=== PATIENT | male | born 1975 | race Caucasian/White ===

== ENCOUNTER 2022-04-17 13:00 | Inpatient (IN) | payer OTHER, SELFPAY ==
[2022-04-17] VITALS (12 sets, daily range): BP systolic 124–151; BP diastolic 79–93; PULSE 94–111; RESP 12–18; TEMP 36.1–37.1; O2SAT 97–99; BMI 24.5; BMI 24.4
--- NOTE | 2022-04-17 14:36 | ED_ITS ---
HPI - Nausea/Vomiting/Diarrhea General Chief complaint: Nausea/Vomiting Stated complaint: vomiting and hasn't eaten in 3 days Time Seen by Provider: 04/17/22 14:30 History of Present Illness HPI Narrative: This 47-year-old male comes in reporting 3 days of nausea and vomiting. He has not had any diarrhea or dysuria. He does not report any fevers. He states that he has not had much to eat and has been time to take liquids. He does have some occasional abdominal pains accompanying his vomiting. Prior to this he has been in good health. Related Data Home Medications Medication Instructions Recorded Confirmed atorvastatin 40 mg tablet 40 mg PO 04/17/22 04/17/22 lisinopril 20 1 tab PO 04/17/22 04/17/22 mg-hydrochlorothiazide 25 mg tablet Allergies Allergy/AdvReac Type Severity Reaction Status Date / Time No Known Drug Allergies Allergy Verified 04/17/22 16:20 Review of Systems Status of ROS: Reports: 10 or more systems reviewed and unremarkable except as noted in History and below Narrative: Constitutional: No fevers, no weight gain or loss. Eyes: No discharge. No vision changes. HENT: No congestion, no sore throat, no ear pain. Cardiovascular: No chest pain, no palpitations. Respiratory: No shortness of breath, no wheezes, no cough. Gastrointestinal: Nausea with repeated vomiting. No diarrhea. Occasional abdominal pain. Genitourinary: No dysuria, no hematuria. Musculoskeletal: Normal range of motion. Skin: No rashes, no pruritis. Neurological: No dizziness, weakness, sensory change, speech change. Endo/Heme/Allergies: No bruising or bleeding. No polydipsia. Pysch: no suicidality, no anxiety, no insomnia. All other systems reviewed and are negative. Exam Narrative: Exam Narrative: Constitutional: Well-developed, well-nourished, no acute distress. HEENT: Normocephalic, atraumatic. Neck: Normal range of motion. Nontender. Supple. Heart: Regular. No murmurs. Tachycardia, rate 111 beats per minute. Intact d istal pulses. Lungs: Clear to auscultation. No chest discomfort. No wheezes, rhonchi, or rales. Abdomen: Normal bowel sounds. Nontender. No rebound tenderness. Genitalia: Deferred. Back: No midline tenderness. Normal range of motion. Extremities: Normal range of motion. No injury. Skin: Intact. No rash. Warm. No erythema or pallor. Neurologic: No altered sensation. No weakness. Alert and oriented. Psychiatric: No suicidality. No anxiety or depression. No insomnia. Nursing notes and vitals signs are reviewed. Const: Vital Signs, click to edit/add: Vital Signs - 24 hr 04/17/22 13:05 Temperature 96.9 F L Pulse Rate [Pulse Oximeter] 111 H Respiratory Rate 18 Blood Pressure [Ri ght Upper Arm] 137/91 H Pulse Oximetry 97 Oxygen Delivery Me thod Room Air Course Vital Signs Vital signs: Initial Vital Signs Temperature 96.9 F L 04/17/22 13:05 Temperature Source Temporal Artery Scan 04/17/22 13:05 Pulse Rate 111 H 04/17/22 13:05 Pulse Rhythm 04/17/22 13:05 Respiratory Rate 18 04/17/22 13:05 Blood Pressure 137/91 H 04/17/22 13:05 Blood Pressure Mean 106 04/17/22 13:05 Blood Pressure Position Sitting 04/17/22 13:05 Pulse Oximetry 97 04/17/22 13:05 Oxygen Delivery Method 04/17/22 13:05 Vital Signs Temperature 96.9 F L 04/17/22 13:05 Pulse Rate 111 H 04/17/22 13:05 Respiratory Rate 18 04/17/22 13:05 Blood Pressure 137/91 H 04/17/22 13:05 Pulse Oximetry 97 04/17/22 13:05 Oxygen Delivery Method 04/17/22 13:05 Temperature 96.9 F L 04/17/22 13:05 Pulse Rate 111 H 04/17/22 13:05 Respiratory Rate 18 04/17/22 13:05 Blood Pressure 137/91 H 04/17/22 13:05 Pulse Oximetry 97 04/17/22 13:05 Oxygen Delivery Method 04/17/22 13:05 MDM - Nausea/Vomiting/Diarrhea MDM Narrative Medical decision making narrative: This patient comes in with 3 days of nausea and vomiting. He has some intermittent abdominal pain also. An IV was established where he received a L of normal saline and 4 mg of Zofran. This caused his vomiting to stop. His white count returns elevated at around 21,000. It is also significant that is sodium returns at 111. He is functioning rather normally. He has some elevated total bilirubin and slight elevation of liver enzymes. I did do a CT scan of the abdomen and pelvis in this returns without any significant findings except for notable for hepatic steatosis. The patient does state that he takes alcohol regularly but has not been excessive recently. He does admit to taking lots of water especially as he was vomiting more. Patient does not have a fever and there is no certain finding explains his leukocytosis. Initially there were no beds available here or for transfer so I did start replacing his sodium with hypertonic saline at 3% given at 30 mL/hr. As this was beginning it was fortunate that a bed did become available here so Dr. Garcia's and made arrangements for his admission and further evaluation and treatment. Lab Data Labs: Lab Results 04/17/22 04/17/22 04/17/22 Range/Units 15:00 15:00 15:00 WBC 21.80 H (4.50-11.00) K/uL RBC 5.00 (4.30-5.90) m/uL Hgb 15.6 (13.5-17.5) gm/dL Hct 41.3 (37.0-53.0) % MCV 83 (80-100) fL MCH 31 (26-34) pg MCHC 38 H (32-36) gm/dL RDW Coeff of [place] 10.7 L (11.5-15.5) % Plt Count 313 (140-440) K/uL Neut % (Auto) 86.0 H (42.0-72.0) % Lymph % (Auto) 2.1 L (20-44) % [place] % (Auto) 11.1 H (0.0-11.0) % Eos % (Auto) 0.0 (0.0-7.0) % Baso % (Auto) 0.0 (0.0-3.0) % Neut # (Auto) 18.70 H (1.7-7.0) K/uL Lymph # (Auto) 0.50 L (0.90-2.90) K/uL [place] # (Auto) 2.40 H (0.00-0.90) K/UL Eos # (Auto) 0.00 (0.00-0.50) K/uL Baso # (Auto) 0.00 (0.00-0.30) K/uL Abs Immat Gran (auto) 0.17 (0.00-0.30) K/uL Sodium 111 L* (135-149) mmol/L Potassium 3.1 L (3.6-5.1) mmol/L Chloride 61 L (96-114) mmol/L Carbon Dioxide 27 (20-32) mmol/L BUN 19 (5-24) mg/dL Creatinine 0.8 (0.5-1.5) mg/dL Estimated Creat Clear 120.40 Estimated GFR 111 ml/min Glucose 130 H (60-115) mg/dL Calcium 10.5 (8.4-10.6) mg/dL Total Bilirubin 2.4 H (0.1-1.5) mg/dL Direct Bilirubin 0.2 (0.0-0.5) mg/dL AST 105 H (12-35) U/L ALT 68 H (4-50) U/L Alkaline Phosphatase 74 (40-150) U/L Total Protein 9.0 H (6.0-8.3) g/dL Albumin 5.5 H (3.3-5.0) g/dL Lipase 138 (23-300) U/L Imaging Data CT scan - abdomen: Radiologist's impression: Hepatic steatosis. The gallbladder appears normal. No biliary duct dilation. Severely distended bladder without wall thickening. Mild bilateral nonspecific perinephric stranding. No hydronephrosis. Discharge Plan Discharge Clinical Impression: Leukocytosis, Acute hyponatremia Patient Disposition: Admitted As Inpatient Condition: Unchanged Prescriptions: No Action lisinopril-hydrochlorothiazide 20-25 mg tablet 1 tab PO Label Comments: TAKE 1 TABLET BY MOUTH EVERY DAY atorvastatin 40 mg tablet 40 mg PO Follow Up/Referrals: Provider,Not a Local [Primary Care Provider] - Critical Care Time Critical Care Time Critical Care Time: Yes Attestation: The patient required my highest level preparedness to intervene emergently and I personally spent this critical care time directly and personally managing the patient. This critical care time included: Obtaining a history; Examining the patient; Pulse oximetry; Ordering and reviewing of studies; Arranging urgent treatment with development of a management plan; Evaluation of patients response to treatment; Frequent reassessment discussions with other providers. This critical care time was performed to assess and manage the high probability of imminent life-threatening deterioration that could result in multiorgan failure. It was exclusive of separate billable procedures and treating other patients and teaching time. Total Critical Care Time in Minutes: 30
[2022-04-17] MEDS: 0.9 % SODIUM CHLORIDE 1000 ml 1,000 ML IV (15:04)
[2022-04-17] MEDS: ONDANSETRON 2 MG/ML inj 4 MG IVP (15:05)
[2022-04-17 15:26] LABS: Hematocrit 41.3 % (37.0-53.0); Hemoglobin* 15.6 gm/dL (13.5-17.5); Immature Granulocytes Abs Auto 0.17 K/uL (0.00-0.30); Lymphocytes Percent Auto 2.1 % (20-44); Mean Corpuscular HGB Conc 38 gm/dL (32-36); Mean Corpuscular Hemoglobin 31 pg (26-34); Mean Corpuscular Volume 83 fL (80-100); Monocytes Percent Auto 11.1 % (0.0-11.0); Platelet Count* 313 K/uL (140-440); RDW Coefficient of Variation % 10.7 % (11.5-15.5)
[2022-04-17 15:28] LABS: Slide Review Reflex No
[2022-04-17 15:33] LABS: Albumin* 5.5 g/dL (3.3-5.0)
[2022-04-17 15:36] LABS: Alanine Aminotransferase* 68 U/L (4-50); Alkaline Phosphatase* 74 U/L (40-150); Aspartate Amino Transferase* 105 U/L (12-35); Bilirubin Direct* 0.2 mg/dL (0.0-0.5); Bilirubin Total* 2.4 mg/dL (0.1-1.5); Lipase* 138 U/L (23-300)
[2022-04-17 15:37] LABS: Chloride* 61 mmol/L (96-114); Potassium* 3.1 mmol/L (3.6-5.1)
[2022-04-17 15:40] LABS: Blood Urea Nitrogen* 19 mg/dL (5-24); Calcium* 10.5 mg/dL (8.4-10.6); Carbon Dioxide* 27 mmol/L (20-32); Creatinine* 0.8 mg/dL (0.5-1.5); Estimated Glomerular Filt Rate 111 ml/min; Glucose* 130 mg/dL (60-115)
--- NOTE | 2022-04-17 15:45 | CRLHL7_ITS ---
For Patients: As a result of the Century Cures Act, medical imaging exams and procedure reports are released immediately into your electronic medical record. You may view this report before your referring provider. If you have questions, please contact your health care provider. INDICATION: vomiting, increased bilirubin, leukocytosis TECHNIQUE: CT abdomen and pelvis with 84 cc Omnipaque 370 IV contrast. COMPARISON: None. FINDINGS: The liver is normal in size, shape would decrease attenuation. The portal vein is patent. No evidence of periportal edema. Gallbladder and biliary tree are normal. The spleen, adrenal glands and pancreas are within normal limits. Mild bilateral nonspecific perinephric stranding. No hydronephrosis. Severely distended bladder without wall thickening. No evidence of bowel obstruction or inflammation. Unremarkable appearing appendix. No significant free fluid and no free air. Pelvic organs are unremarkable. The lower chest is unremarkable. Mild multilevel degenerative spondylosis without acute fracture or aggressive osseous lesion. IMPRESSION: Hepatic steatosis. The gallbladder appears normal. No biliary duct dilation. Severely distended bladder without wall thickening. Mild bilateral nonspecific perinephric stranding. No hydronephrosis. Please note that all CT scans at this facility use dose modulation, iterative reconstruction, and/or weight-based dosing when appropriate to reduce radiation dose to as low as reasonably achievable. Dictated by Mars Bell MD @ 04/17/2022 4:45:31 PM (Electronically Signed)
[2022-04-17 15:47] LABS: Sodium* 111 mmol/L (135-149)
--- NOTE | 2022-04-17 15:48 | ED.NURSE ---
dr nur informed of critical na of 111. lucrecia espinoza was also informed.
--- NOTE | 2022-04-17 18:46 | PM.IMHP1 ---
Hospitalist- H&P: HPI History of Present Illness Date Seen: 04/17/22 Chief complaint: vomiting and hasn't eaten in 3 days Narrative: Layton Bowers is a 47 year old male who presented to the ED for nausea, vomiting, and abdominal pain. Symptoms began 2 days ago, no inciting incident or food noted. Family members do not have similar symptoms. No hematemesis. No diarrhea. Urine began looking quite concentrated the last 24 hours, so he has been pushing fluids and drinking quite a bit of water. He has continued to take his lisinopril-hydrochlorothiazide and atorvastatin during illness. ER course and findings: - symptoms improved after 1 L of normal saline and administration of Zofran - labs revealed a sodium of 111, potassium 3.1, chloride 61, glucose 130, white count of 21. AST/ALT/bilirubin elevated - CT of abdomen pelvis reveals no infectious process or acute abnormality Patient has a history of daily alcohol use, has been working on cutting down. Last alcohol intake was vodka last night (04/16). Has had symptoms of withdrawal in the past. Also has a history of Essential HTN and hyperlipidemia. Mild GERD, has been using TUMS recently. Lives with Holly (would be medical decision maker if needed) and children in [place]. 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 Nonsmoker. COVID vaccinated. Review of Systems Status of ROS: Reports: 10 or more systems reviewed and unremarkable except as noted in History and below [facility] Medical History (Updated 04/17/22 @ 18:52 by Barbra Farris MD) Essential hypertension Gastroenteritis Hyperlipidemia Surgical History (Updated 04/17/22 @ 19:58 by Barbra Farris MD) History of colonoscopy Social History Smoking Status: Never smoker Non-prescribed substance use: denies use Meds Home Medications and Allergies Home Medications Medication Instructions Recorded Confirmed Type atorvastatin 40 mg tablet 40 mg PO DAILY 04/17/22 04/17/22 History lisinopril 20 1 tab PO DAILY 04/17/22 04/17/22 History mg-hydrochlorothiazide 25 mg tablet Allergies Allergy/AdvReac Type Severity Reaction Status Date / Time No Known Drug Allergies Allergy Verified 04/17/22 16:20 Exam Narrative: Exam Narrative: GEN: Alert and oriented, answering questions appropriately HEENT: Normal external ears, EOMIs bilaterally, no scleral icterus CV: RRR (rate 100s), no concerning murmurs, rubs, or gallops R: LCTA bilaterally without concerning wheezing, rales, or rhonchi Ab: soft, mild discomfort with palpation, no rebound or guarding Ext: wwp, no concerning edema Skin: No concerning skin lesions or rashes on exposed skin Neuro: Nonfocal Psych: Appropriate Const: Vital Signs, click to edit/add: Vital Signs - 24 hr 04/17/22 13:05 Temperature 96.9 F L Pulse Rate [Pulse Oximeter] 111 H Respiratory Rate 18 Blood Pressure [Ri ght Upper Arm] 137/91 H Pulse Oximetry 97 Oxygen Delivery Me thod Room Air Hospitalist - H&P: Result Labs Labs: Short CBC 04/17/22 Range/Units 15:00 WBC 21.80 H (4.50-11.00) K/uL Hgb 15.6 (13.5-17.5) gm/dL Hct 41.3 (37.0-53.0) % Plt Count 313 (140-440) K/uL BMP 04/17/22 15:00 Sodium 111 L* Potassium 3.1 L Chloride 61 L Carbon Dioxide 27 BUN 19 Creatinine 0.8 Glucose 130 H Calcium 10.5 Liver Function 04/17/22 Range/Units 15:00 Total Bilirubin 2.4 H (0.1-1.5) mg/dL Direct Bilirubin 0.2 (0.0-0.5) mg/dL AST 105 H (12-35) U/L ALT 68 H (4-50) U/L Alkaline Phosphatase 74 (40-150) U/L Albumin 5.5 H (3.3-5.0) g/dL Assessment and Plan Assessment and plan (1) Acute hyponatremia: Status: Acute Assessment and Plan: Likely secondary to increased free water intake during acute GI illness, while continuing to take hydrochlorothiazide. ETOH use also possibly contributing. We will treat with hypertonic saline at 30 mL/hour with Q4H BMPs to ensure that we are not correcting sodium too rapidly. Place on CIWA protocol. (2) Gastroenteritis: Status: Acute Assessment and Plan: Improved after Zofran, will also treat with PPI given possible GERD component. (3) Leukocytosis: Status: Acute Assessment and Plan: Source unclear, no signs or symptoms of acute infection, possibly stress demargination from acute illness. Will follow white count and monitor closely for signs or symptoms of illness. (4) Essential hypertension: Status: Acute Assessment and Plan: Hold lisinopril-hydrochlorothiazide overnight, reassess in the morning. (5) Hyperlipidemia: Status: Acute Plan - per above - SCDs per prophylaxis - Requests Full Code status
[2022-04-17 19:43] LABS: Chloride* 67 mmol/L (96-114)
[2022-04-17 19:44] LABS: Potassium* 3.1 mmol/L (3.6-5.1)
[2022-04-17 19:46] LABS: Creatinine* 0.6 mg/dL (0.5-1.5); Est. Creatinine Clearance* 160.53; Estimated Glomerular Filt Rate 121 ml/min
[2022-04-17 19:48] LABS: Blood Urea Nitrogen* 16 mg/dL (5-24); Carbon Dioxide* 29 mmol/L (20-32); Sodium* 109 mmol/L (135-149)
[2022-04-17 19:49] LABS: Calcium* 8.8 mg/dL (8.4-10.6); Glucose* 149 mg/dL (60-115)
--- NOTE | 2022-04-17 20:12 | ED.NURSE ---
No neuro changes/deficits. A + o X4. Pt aware of fluid restriction. LS clear at this time. VSS. Tolerating RA. 500mL of free water given to Pt since arrival. Pt tolerating food that brought. Report given to DMITRIY Partida. Pt will go to [facility] when COVID result is complete.
[2022-04-17 20:29] LABS: SARS PCR* Negative SARS-CoV-2 (Negative)
[2022-04-17] MEDS: LORazepam 2 MG/ML inj IVP (20:58)
[2022-04-17] MEDS: PANTOPRAZOLE SODIUM 40 MG INJ IVP (20:58)
[2022-04-18] VITALS (9 sets, daily range): BP systolic 107–139; BP diastolic 62–97; PULSE 90–103; RESP 16; TEMP 36.6–37.3; O2SAT 97–99
[2022-04-18 00:30] LABS: Chloride* 71 mmol/L (96-114)
[2022-04-18 00:31] LABS: Potassium* 3.4 mmol/L (3.6-5.1)
[2022-04-18 00:33] LABS: Carbon Dioxide* 32 mmol/L (20-32); Creatinine* 0.7 mg/dL (0.5-1.5); Estimated Glomerular Filt Rate 116 ml/min
[2022-04-18 00:34] LABS: Blood Urea Nitrogen* 15 mg/dL (5-24); Calcium* 8.5 mg/dL (8.4-10.6); Glucose* 113 mg/dL (60-115)
[2022-04-18 00:36] LABS: Sodium* 112 mmol/L (135-149)
--- NOTE | 2022-04-18 00:43 | PC.NURSE ---
Critical lab Na 112, taken @ 0037. Dr. Farris notified.
[2022-04-18 03:45] LABS: Chloride* 72 mmol/L (96-114)
[2022-04-18 03:46] LABS: Potassium* 3.2 mmol/L (3.6-5.1)
[2022-04-18 03:48] LABS: Carbon Dioxide* 32 mmol/L (20-32); Creatinine* 0.8 mg/dL (0.5-1.5); Estimated Glomerular Filt Rate 111 ml/min
[2022-04-18 03:49] LABS: Blood Urea Nitrogen* 14 mg/dL (5-24); Calcium* 8.3 mg/dL (8.4-10.6); Glucose* 110 mg/dL (60-115)
[2022-04-18 03:50] LABS: Sodium* 114 mmol/L (135-149)
--- NOTE | 2022-04-18 03:51 | PC.NURSE ---
Critical lab Na 114 @ 0200
--- NOTE | 2022-04-18 05:57 | PC.NURSE ---
Pt came to floor @ 2100 with Na level of 109. Hypertonic NS running at 30/hr. Ativan given At HS. Pt claimed nausea and pain then under control. No emesis. Pt 1200cc FR. Oiented x3. IND on feet. Pt instructed to call RN for assistance with ambulating.
[2022-04-18 07:28] LABS: Basophils Percent Auto 0.1 % (0.0-3.0); Eosinophils Percent Auto 0.3 % (0.0-7.0); Hematocrit 37.3 % (37.0-53.0); Hemoglobin* 13.9 gm/dL (13.5-17.5); Immature Granulocytes Abs Auto 0.03 K/uL (0.00-0.30); Lymphocytes Percent Auto 7.3 % (20-44); Mean Corpuscular HGB Conc 37 gm/dL (32-36); Mean Corpuscular Hemoglobin 32 pg (26-34); Mean Corpuscular Volume 85 fL (80-100); Monocytes Percent Auto 13.1 % (0.0-11.0); Platelet Count* 219 K/uL (140-440); RDW Coefficient of Variation % 10.8 % (11.5-15.5); Red Blood Count 4.41 m/uL (4.30-5.90); White Blood Count* 13.56 K/uL (4.50-11.00)
[2022-04-18 07:30] LABS: Slide Review Reflex No
--- NOTE | 2022-04-18 07:32 | CRLHL7_ITS ---
For Patients: As a result of the Century Cures Act, medical imaging exams and procedure reports are released immediately into your electronic medical record. You may view this report before your referring provider. If you have questions, please contact your health care provider. INDICATION: Leukocytosis. TECHNIQUE: Chest 1 views. COMPARISON: None. FINDINGS: Cardiovasculature and mediastinum: Heart size and vasculature are normal in caliber and appearance. Lungs and pleural spaces: Lungs are clear. No sign of infiltrate or mass. No sign of pleural effusion. No pneumothorax. Bones and soft tissues: No significant findings. IMPRESSION: Negative chest. Dictated by Cassius Awad MD @ 04/18/2022 8:04:16 AM (Electronically Signed)
[2022-04-18 07:38] LABS: Albumin* 4.2 g/dL (3.3-5.0); Chloride* 75 mmol/L (96-114)
[2022-04-18 07:41] LABS: Alanine Aminotransferase* 57 U/L (4-50); Alkaline Phosphatase* 63 U/L (40-150); Aspartate Amino Transferase* 80 U/L (12-35); Bilirubin Total* 1.4 mg/dL (0.1-1.5); Blood Urea Nitrogen* 14 mg/dL (5-24); Carbon Dioxide* 31 mmol/L (20-32); Creatinine* 0.7 mg/dL (0.5-1.5); Estimated Glomerular Filt Rate 116 ml/min; Glucose* 109 mg/dL (60-115); Total Protein* 6.8 g/dL (6.0-8.3)
[2022-04-18 07:42] LABS: Calcium* 8.3 mg/dL (8.4-10.6)
[2022-04-18 07:44] LABS: C Reactive Protein* 4.5 mg/dL (0.5-1.0)
[2022-04-18 07:48] LABS: Gamma Glutamyl Transpeptidase* 68 U/L (8-55)
[2022-04-18 07:52] LABS: C Reactive Protein* 4.6 mg/dL (0.5-1.0)
[2022-04-18 07:59] LABS: Procalcitonin* 0.32 ng/mL (<0.50)
[2022-04-18 08:03] LABS: Sodium* 114 mmol/L (135-149)
[2022-04-18 08:04] LABS: Potassium* 2.5 mmol/L (3.6-5.1)
[2022-04-18] MEDS: POTASSIUM CHLORIDE 10 MEQ/100 ML PIGGYBACK 100 MEQ IVPB ×4 (08:51→14:39)
[2022-04-18] MEDS: LACTATED RINGERS 1000 ML 1,000 ML 200 ML IV ×4 (09:14→23:56)
[2022-04-18] MEDS: PANTOPRAZOLE SODIUM 40 MG INJ IVP (10:04)
[2022-04-18] MEDS: POTASSIUM BICARB 25 MEQ EFFERVESCENT TAB PO ×2 (10:09→18:46)
[2022-04-18] MEDS: MAG HYDROX/ALUMINUM HYD/SIMETH 30 ML ORAL.SUSP 15 ML PO (10:12)
[2022-04-18 13:23] LABS: Chloride* 79 mmol/L (96-114); Potassium* 3.1 mmol/L (3.6-5.1)
[2022-04-18 13:25] LABS: Creatinine* 0.6 mg/dL (0.5-1.5); Est. Creatinine Clearance* 160.53; Estimated Glomerular Filt Rate 121 ml/min
[2022-04-18 13:26] LABS: Blood Urea Nitrogen* 12 mg/dL (5-24); Calcium* 7.9 mg/dL (8.4-10.6); Carbon Dioxide* 33 mmol/L (20-32); Glucose* 122 mg/dL (60-115)
[2022-04-18 13:39] LABS: Sodium* 117 mmol/L (135-149)
[2022-04-18 14:05] LABS: Appearance Urine Clear (Clear); Bilirubin Urine Negative (Negative); Blood Urine Negative (Negative); Color Urine Yellow (Yellow); Glucose Urine Negative (Negative); Ketones Urine 2+ (Negative); Leukocyte Esterase Urine Negative (Negative); Nitrite Urine Negative (Negative); Protein Urine Negative (Negative); Specific Gravity Urine 1.015 (1.000-1.030); Urobilinogen Urine 0.2 (0.2-1.0)
[2022-04-18 14:12] LABS: Amphetamine Screen Urine Negative (Negative); Barbiturate Screen Urine Negative (Negative); Cannabinoid Screen Urine Negative (Negative); Cocaine Screen Urine Negative (Negative); Methadone Screen Urine Negative (Negative); Methamphetamines Screen Urine Negative (Negative); Opiate Screen Urine Negative (Negative); Oxycodone Screen Urine Negative (Negative); Phencyclidine Screen Urine Negative (Negative); Tricyclic Antidepressant Urine Negative (Negative)
[2022-04-18 14:16] LABS: RBC Urine 0-2 (0-2); Squamous Epithelial Cell Urine Few (None-Few); WBC Urine 0-2 (0-5)
[2022-04-18 14:18] LABS: Benzodiazepines Screen Urine POSITIVE (Negative)
--- NOTE | 2022-04-18 14:24 | PM.IMPN1 ---
Progress Note: A&P Assessment and plan (1) Acute hyponatremia: Status: Acute Assessment and Plan: Likely represents a perfect storm of chronic alcohol use, free water intake with gastroenteritis, hydrochlorothiazide therapy. Replaced initially with 3% hypertonic. Now getting LR and still on a fluid restriction. Will check at least 3 times a day and shoot for a increase of 5-6 mEq daily. (2) Acute hypokalemia: Status: Acute Assessment and Plan: IV replacement, 40 mEq (3) Leukocytosis: Status: Acute Assessment and Plan: Probably stress demargination. I am reassured by his CRP and procalcitonin. I am reassured by his chest x-ray. I reviewed his abdomen pelvis CT. (4) Essential hypertension: Status: Acute Assessment and Plan: Certainly will not be getting any hydrochlorothiazide. Will monitor his blood pressures and add back varying regimen of his home meds as needed. (5) Gastroenteritis: Status: Acute Assessment and Plan: Probably viral. Those symptoms seem to have improved greatly. (6) Alcohol dependence, daily use: Status: Acute Assessment and Plan: Mostly daily vodka drinker. Will continue CIWA and close observation as it is really not quite clear when he drink last. Subjective Date Seen: 04/18/22 Interval history: Daily Progress Note - Hospital Medicine Day #: 2 CC: ongoing weakness; nausea/burping/GERD. Severe hyponatremia and hypokalemia. OVERNIGHT UPDATES FROM STAFF & MED, LAB, IMAGING UPDATES He was receiving 3% hypertonic saline overnight given his severe hyponatremia. This is coming up as hoped slowly. From midnight until 1:00 p.m. he came of 5 points. I stopped hypertonic saline mid morning. He is receiving lactated Ringer's. He did receive IV potassium boluses. He was requesting more PPI as he is burping and having significant GERD. His withdrawal has been minimal. Vital signs are all reassuring. On room air with sats 98%. Normal blood pressure, normal pulse. CBC reflects an ongoing leukocytosis but dramatically better 21.8 down to 13.5. Procalcitonin CRP were also checked and trended overnight. These are both either stable or unremarkable. Chest x-ray, portable, this morning Negative chest. Sodium started at 1:11 a.m. dipped to 109 and from midnight last night 112-117 at 1:00 p.m. today. So since midnight there has been a 5 point increase. He did receive 3% normal saline at 30 mL an hour until I arrived this morning. He is now getting LR at 200 mL an hour. His potassium dropped to 2.5 this morning and upon repeat this afternoon was 3.1. Did order 40 mEq IV. UA shows 2+ ketones, otherwise urinary sediment is very reassuring. His tox only shows the benzos we gave him. His CIWA scores have been unremarkable. He has only received Ativan x1 at 9:00 p.m. last night, 2 mg. Review of Systems: Generalized weakness See subjective Cardiac: No new chest pain/pressure/palpitations. Respiratory: no new dyspnea. GI: No abdominal bloating but positive for dyspepsia and heartburn Objective: He looks tired but he is alert, good historian. Vitals: see above Lungs: Clear. Cardiac: S1S2. No swelling Abdomen benign Disposition/Potential discharge - Likely to return to previous living situation. Total time is 35 minutes with greater than 50% spent in counseling and coordination of care. Exam Const: Vital Signs, click to edit/add: Vital Signs - 24 hr 04/17/22 20:46 04/17/22 20:36 04/17/22 17:00 Temperature 98.7 F 96.9 F L Pulse Rate Pulse Rate [Pulse Oximeter] 104 H 108 H Pulse Rate [Right Pulse Oximeter] 94 Respiratory Rate 16 18 12 Blood Pressure [Ri ght Arm] 137/80 Blood Pressure [Ri ght Upper Arm] 151/79 H 151/93 H Pulse Oximetry 99 97 Oxygen Delivery Me thod Room Air 04/17/22 19:37 04/17/22 19:37 04/17/22 20:43 Temperature 98.7 F Pulse Rate Pulse Rate [Pulse Oximeter] Pulse Rate [Right Pulse Oximeter] 94 Respiratory Rate 16 Blood Pressure [Ri ght Arm] 137/80 Blood Pressure [Ri ght Upper Arm] Pulse Oximetry 99 99 99 Oxygen Delivery Me thod Room Air 04/17/22 21:07 04/17/22 21:39 04/17/22 21:46 Temperature 98.7 F Pulse Rate 97 Pulse Rate [Pulse Oximeter] Pulse Rate [Right Pulse Oximeter] 94 Respiratory Rate 16 16 Blood Pressure [Ri ght Arm] 137/80 Blood Pressure [Ri ght Upper Arm] Pulse Oximetry 99 99 Oxygen Delivery Me thod Room Air Room Air 04/17/22 22:16 04/17/22 23:11 04/17/22 23:56 Temperature 98.8 F 98.8 F 98.8 F Pulse Rate Pulse Rate [Pulse Oximeter] Pulse Rate [Right Pulse Oximeter] 100 102 H 97 Respiratory Rate 16 16 16 Blood Pressure [Ri ght Arm] 143/83 H 124/80 124/80 Blood Pressure [Ri ght Upper Arm] Pulse Oximetry 97 97 99 Oxygen Delivery Me thod Room Air Room Air Room Air 04/18/22 02:20 04/18/22 07:00 04/18/22 07:00 Temperature 98.7 F 98 F Pulse Rate Pulse Rate [Pulse Oximeter] Pulse Rate [Right Pulse Oximeter] 100 96 96 Respiratory Rate 16 16 16 Blood Pressure [Ri ght Arm] 107/70 124/68 Blood Pressure [Ri ght Upper Arm] Pulse Oximetry 98 98 Oxygen Delivery Me thod Room Air Room Air Labs Labs: Laboratory Results - last 24 hr 04/17/22 04/17/22 04/17/22 15:00 15:00 15:00 WBC 21.80 H RBC 5.00 Hgb 15.6 Hct 41.3 MCV 83 MCH 31 MCHC 38 H RDW Coeff of Augustus 10.7 L Plt Count 313 Neut % (Auto) 86.0 H Lymph % (Auto) 2.1 L [place] % (Auto) 11.1 H Eos % (Auto) 0.0 Baso % (Auto) 0.0 Neut # (Auto) 18.70 H Lymph # (Auto) 0.50 L [place] # (Auto) 2.40 H Eos # (Auto) 0.00 Baso # (Auto) 0.00 Abs Immat Gran (auto) 0.17 Sodium 111 L* Potassium 3.1 L Chloride 61 L Carbon Dioxide 27 BUN 19 Creatinine 0.8 Estimated Creat Clear 120.40 Estimated GFR 111 Glucose 130 H Calcium 10.5 Total Bilirubin 2.4 H Direct Bilirubin 0.2 GGT AST 105 H ALT 68 H Alkaline Phosphatase 74 C-Reactive Protein Total Protein 9.0 H Albumin 5.5 H Lipase 138 Procalcitonin Urine Color Urine Appearance Urine pH Ur Specific [place] Urine Protein Urine Glucose (UA) Urine Ketones Urine Blood Urine Nitrite Urine Bilirubin Urine Urobilinogen Ur Leukocyte Esterase Urine RBC Urine WBC Ur Squamous Epith Cells Urine Bacteria Urine Opiates Screen Ur Oxycodone Screen Urine Methadone Screen Ur Propoxyphene Screen Ur Barbiturates Screen U Tricyclic Antidepress Ur Phencyclidine Scrn Ur Amphetamines Screen U Methamphetamines Scrn U Benzodiazepines Scrn Urine Cocaine Screen U Marijuana (THC) Screen Ur Drug Screen Comment SARS-CoV-2 (PCR) 04/17/22 04/17/22 04/17/22 18:45 19:20 23:55 WBC RBC Hgb Hct MCV MCH MCHC RDW Coeff of [place] Plt Count Neut % (Auto) Lymph % (Auto) [place] % (Auto) Eos % (Auto) Baso % (Auto) Neut # (Auto) Lymph # (Auto) [place] # (Auto) Eos # (Auto) Baso # (Auto) Abs Immat Gran (auto) Sodium 109 L* 112 L* Potassium 3.1 L 3.4 L Chloride 67 L 71 L Carbon Dioxide 29 32 BUN 16 15 Creatinine 0.6 0.7 Estimated Creat Clear 160.53 137.60 Estimated GFR 121 116 Glucose 149 H 113 Calcium 8.8 8.5 Total Bilirubin Direct Bilirubin GGT 68 H AST ALT Alkaline Phosphatase C-Reactive Protein 4.6 H Total Protein Albumin Lipase Procalcitonin 0.32 Urine Color Urine Appearance Urine pH Ur Specific [place] Urine Protein Urine Glucose (UA) Urine Ketones Urine Blood Urine Nitrite Urine Bilirubin Urine Urobilinogen Ur Leukocyte Esterase Urine RBC Urine WBC Ur Squamous Epith Cells Urine Bacteria Urine Opiates Screen Ur Oxycodone Screen Urine Methadone Screen Ur Propoxyphene Screen Ur Barbiturates Screen U Tricyclic Antidepress Ur Phencyclidine Scrn Ur Amphetamines Screen U Methamphetamines Scrn U Benzodiazepines Scrn Urine Cocaine Screen U Marijuana (THC) Screen Ur Drug Screen Comment SARS-CoV-2 (PCR) Negative SARS-CoV-2 04/18/22 04/18/22 04/18/22 03:28 06:39 06:39 WBC 13.56 H RBC 4.41 Hgb 13.9 Hct 37.3 MCV 85 MCH 32 MCHC 37 H RDW Coeff of [place] 10.8 L Plt Count 219 Neut % (Auto) 79.0 H Lymph % (Auto) 7.3 L [place] % (Auto) 13.1 H Eos % (Auto) 0.3 Baso % (Auto) 0.1 Neut # (Auto) 10.70 H Lymph # (Auto) 1.00 [place] # (Auto) 1.80 H Eos # (Auto) 0.00 Baso # (Auto) 0.00 Abs Immat Gran (auto) 0.03 Sodium 114 L* 114 L* Potassium 3.2 L 2.5 L* Chloride 72 L 75 L Carbon Dioxide 32 31 BUN 14 14 Creatinine 0.8 0.7 Estimated Creat Clear 120.40 137.60 Estimated GFR 111 116 Glucose 110 109 Calcium 8.3 L 8.3 L Total Bilirubin 1.4 Direct Bilirubin GGT AST 80 H ALT 57 H Alkaline Phosphatase 63 C-Reactive Protein 4.5 H Total Protein 6.8 Albumin 4.2 Lipase Procalcitonin 0.30 Urine Color Urine Appearance Urine pH Ur Specific [place] Urine Protein Urine Glucose (UA) Urine Ketones Urine Blood Urine Nitrite Urine Bilirubin Urine Urobilinogen Ur Leukocyte Esterase Urine RBC Urine WBC Ur Squamous Epith Cells Urine Bacteria Urine Opiates Screen Ur Oxycodone Screen Urine Methadone Screen Ur Propoxyphene Screen Ur Barbiturates Screen U Tricyclic Antidepress Ur Phencyclidine Scrn Ur Amphetamines Screen U Methamphetamines Scrn U Benzodiazepines Scrn Urine Cocaine Screen U Marijuana (THC) Screen Ur Drug Screen Comment SARS-CoV-2 (PCR) 04/18/22 04/18/22 04/18/22 13:04 13:55 13:55 WBC RBC Hgb Hct MCV MCH MCHC RDW Coeff of [place] Plt Count Neut % (Auto) Lymph % (Auto) [place] % (Auto) Eos % (Auto) Baso % (Auto) Neut # (Auto) Lymph # (Auto) [place] # (Auto) Eos # (Auto) Baso # (Auto) Abs Immat Gran (auto) Sodium 117 L* Potassium 3.1 L Chloride 79 L Carbon Dioxide 33 H BUN 12 Creatinine 0.6 Estimated Creat Clear 160.53 Estimated GFR 121 Glucose 122 H Calcium 7.9 L Total Bilirubin Direct Bilirubin GGT AST ALT Alkaline Phosphatase C-Reactive Protein Total Protein Albumin Lipase Procalcitonin Urine Color Yellow Urine Appearance Clear Urine pH 7.0 Ur Specific [place] 1.015 Urine Protein Negative Urine Glucose (UA) Negative Urine Ketones 2+ A Urine Blood Negative Urine Nitrite Negative Urine Bilirubin Negative Urine Urobilinogen 0.2 Ur Leukocyte Esterase Negative Urine RBC 0-2 Urine WBC 0-2 Ur Squamous Epith Cells Few Urine Bacteria None Urine Opiates Screen Negative Ur Oxycodone Screen Negative Urine Methadone Screen Negative Ur Propoxyphene Screen Negative Ur Barbiturates Screen Negative U Tricyclic Antidepress Negative Ur Phencyclidine Scrn Negative Ur Amphetamines Screen Negative U Methamphetamines Scrn Negative U Benzodiazepines Scrn POSITIVE A* Urine Cocaine Screen Negative U Marijuana (THC) Screen Negative Ur Drug Screen Comment See Note SARS-CoV-2 (PCR)
--- NOTE | 2022-04-18 19:45 | PC.NURSE ---
Patient is up independently this shift. Voiding dark arben urine. Patient received IV potassium replacement without complication. Pt complained of indigestion/throat irritation - Maalox given and protonix ordered per Dr. Pathak. Pt was able to eat a regular diet for dinner without nausea.
[2022-04-18 20:13] LABS: HCO3 VBG 33 mmol/L (21-28); PCO2 VBG 45 mmHG (40-50); PO2 VBG 29.2 mmHG (25-47); pH VBG 7.479 (7.32-7.43)
[2022-04-18 20:32] LABS: Chloride* 83 mmol/L (96-114); Potassium* 3.5 mmol/L (3.6-5.1)
[2022-04-18 20:34] LABS: Creatinine* 0.7 mg/dL (0.5-1.5); Estimated Glomerular Filt Rate 116 ml/min
[2022-04-18 20:35] LABS: Blood Urea Nitrogen* 9 mg/dL (5-24); Calcium* 7.9 mg/dL (8.4-10.6); Carbon Dioxide* 30 mmol/L (20-32); Glucose* 126 mg/dL (60-115)
[2022-04-18 20:37] LABS: Sodium* 120 mmol/L (135-149)
--- NOTE | 2022-04-18 20:40 | PC.NURSE ---
Critical Lab, sodium 120, charge nurse and MD updated
[2022-04-19 03:00] VITALS: BP 139/97; PULSE 91; RESP 16; TEMP 37.2; O2SAT 98
[2022-04-19] MEDS: LACTATED RINGERS 1000 ML 1,000 ML 200 ML IV (04:51)
--- NOTE | 2022-04-19 05:25 | PC.NURSE ---
[id number] PT resting well during shift, up independently to BR, tolerating well. denies N/V, headache and chest pain.
[2022-04-19 07:09] LABS: Ionized Calcium* 1.07 mmol/L (1.11-1.30)
[2022-04-19 07:31] LABS: Basophils Absolute Auto 0.03 K/uL (0.00-0.30); Basophils Percent Auto 0.3 % (0.0-3.0); Eosinophils Absolute Auto 0.06 K/uL (0.00-0.50); Eosinophils Percent Auto 0.6 % (0.0-7.0); Hematocrit 35.9 % (37.0-53.0); Hemoglobin* 12.7 gm/dL (13.5-17.5); Immature Granulocytes Abs Auto 0.03 K/uL (0.00-0.30); Lymphocytes Percent Auto 12.5 % (20-44); Mean Corpuscular HGB Conc 35 gm/dL (32-36); Mean Corpuscular Hemoglobin 31 pg (26-34); Mean Corpuscular Volume 88 fL (80-100); Monocytes Percent Auto 13.8 % (0.0-11.0); Neutrophils Percent Auto 72.5 % (42.0-72.0); Platelet Count* 205 K/uL (140-440); RDW Coefficient of Variation % 11.2 % (11.5-15.5); Red Blood Count 4.07 m/uL (4.30-5.90); White Blood Count* 9.33 K/uL (4.50-11.00)
[2022-04-19 07:44] LABS: Slide Review Reflex No
[2022-04-19 07:50] LABS: Albumin* 3.5 g/dL (3.3-5.0); Chloride* 91 mmol/L (96-114)
[2022-04-19 07:51] LABS: Potassium* 3.1 mmol/L (3.6-5.1); Sodium* 126 mmol/L (135-149)
[2022-04-19 07:53] LABS: Alkaline Phosphatase* 48 U/L (40-150); Aspartate Amino Transferase* 64 U/L (12-35); Bilirubin Total* 0.7 mg/dL (0.1-1.5); Blood Urea Nitrogen* 6 mg/dL (5-24); Carbon Dioxide* 28 mmol/L (20-32); Creatinine* 0.6 mg/dL (0.5-1.5); Est. Creatinine Clearance* 160.53; Estimated Glomerular Filt Rate 121 ml/min; Lipase* 128 U/L (23-300)
[2022-04-19 07:54] LABS: Alanine Aminotransferase* 55 U/L (4-50); Calcium* 8.1 mg/dL (8.4-10.6); Gamma Glutamyl Transpeptidase* 59 U/L (8-55); Glucose* 101 mg/dL (60-115); Magnesium* 1.7 mg/dL (1.5-2.6)
[2022-04-19 07:56] LABS: C Reactive Protein* 3.9 mg/dL (0.5-1.0)
[2022-04-19 08:00] VITALS: BP 144/101; PULSE 98; RESP 14; TEMP 36.9; O2SAT 98
[2022-04-19] MEDS: POTASSIUM BICARB 25 MEQ EFFERVESCENT TAB PO ×3 (08:11→15:18)
[2022-04-19] MEDS: POTASSIUM CHLORIDE 10 MEQ/100 ML PIGGYBACK 100 MEQ IVPB ×3 (08:34→11:05)
[2022-04-19] MEDS: PANTOPRAZOLE SODIUM 40 MG INJ IVP (10:04)
[2022-04-19] MEDS: MAGNESIUM OXIDE 400 MG TABLET PO (11:02)
[2022-04-19 12:00] VITALS: BP 135/92; PULSE 100; RESP 16; TEMP 36.8; O2SAT 99
[2022-04-19 15:00] VITALS: PULSE 107; RESP 16
[2022-04-19 15:56] VITALS: BP 152/90; PULSE 107; RESP 16; TEMP 37.1; O2SAT 99
[2022-04-19 16:01] LABS: Chloride* 92 mmol/L (96-114); Potassium* 3.5 mmol/L (3.6-5.1); Sodium* 128 mmol/L (135-149)
[2022-04-19 16:04] LABS: Blood Urea Nitrogen* 12 mg/dL (5-24); Carbon Dioxide* 28 mmol/L (20-32); Creatinine* 0.7 mg/dL (0.5-1.5); Estimated Glomerular Filt Rate 116 ml/min; Glucose* 140 mg/dL (60-115)
[2022-04-19 16:05] LABS: Calcium* 8.4 mg/dL (8.4-10.6); Magnesium* 1.6 mg/dL (1.5-2.6)
[2022-04-19 16:44] VITALS: BP 152/90; PULSE 90; RESP 16; TEMP 37.1
--- NOTE | 2022-04-19 16:54 | P.DS_ITS ---
DS: Providers Provider Date Seen: 04/19/22 Date of admission: 04/17/22 20:15 Primary care physician: Not a Local Provider Admitting Clinician: Barbra Farris MD Attending Physician on discharge: Vero Pathak MD [place] [facility] Date of Discharge: 04/19/22 DS: Diagnosis Discharge Diagnosis (1) Acute hyponatremia: Status: Acute (2) Gastroenteritis: Status: Acute (3) Acute hypokalemia: Status: Acute (4) Alcohol dependence, daily use: Status: Acute (5) Essential hypertension: Status: Acute DS: Summary Hospital Course Hospital Course: HOSPITALIST DISCHARGE SUMMARY ATTENDING PHYSICIAN: Vero Pathak MD FINAL DIAGNOSIS: Severe hyponatremia Hypokalemia Hypomagnesemia Hypertension Daily alcohol use Resolved/recent gastroenteritis HOSPITAL FOLLOWUP ISSUES: Lab - BMP and magnesium should be checked this week PCP establishment - this week for ongoing abstinence from alcohol plan, blood pressure management and lab interpretation. REFERRALS WHILE ADMITTED: None REFERRALS AFTER DISCHARGE: Alcoholics anonymous BRIEF HOSPITAL COURSE: This is a 47-year-old who presented with severe hyponatremia. Manisha of his sodium was 109. He was treated in our ICU with hypertonic saline. His hyponatremia was felt to be multifactorial. He had recently had a gastroenteritis and continue to take his thiazide diuretic for hypertension, really pushed free water when he stopped vomiting and as a baseline is a near daily vodka drinker. We obviously held his thiazide, he did not have significant withdrawals, we have managed his blood pressure, improved his sodium to a discharge level of 128. This was done through fluid restriction, hypertonic saline, lactated Ringer's, salt tabs. Patient is discharging on the evening of 04/19. He is no longer on fluids. He has abided by his fluid restriction. He is anxious to return home. VITAL SIGN, MEDICATION, LAB/MICRO, IMAGING ALL REVIEWED (full details available in account tabs or by records request) NOTABLE FOR: Sodium that had a manisha of 109 and increased to 128 Potassium that had a manisha of 2.5 and discharge was 3.5 Calcium that was 1.07 and increased to 1.1 Magnesium that was low normal Mildly elevated LFTs with out obstruction. DISCHARGE MEDICATIONS: See Reconciled list Notable for: Stopping hydrochlorothiazide, restarting lisinopril only at 20 mg. Adding salt tabs, ppi, Zofran as needed REVIEW OF SYSTEMS No new chest pain or dyspnea Pain controlled No voiding difficulties Tolerating diet challenge PHYSICAL EXAM: CONSTITUTIONAL: VITAL SIGNS: see record. HEENT: Normocephalic, atraumatic. PERRL, EOMI, conjunctivae pink, no scleral icterus. Ears and nose externally normal. Pharynx normal. NECK: No JVD. No carotid bruit, no thyromegaly, no adenopathy. CHEST: Clear to auscultation bilaterally. HEART: S1 and S2 normal. Edema ABDOMEN: Soft, nontender. Normal bowel sounds. MUSCULOSKELETAL: No gross joint deformity or swelling. NEURO: Cranial nerves intact. Grossly intact. No asymmetric findings. SKIN: No rashes, petechiae, concerning changes PSYCHIATRIC: Mood euthymic. DISPOSITION: Home with family Time spent on discharge 37 minutes. Status at Discharge Functional status at discharge: independent ambulation Overall status at discharge: patient is progressing back to baseline Time Spent with Patient Time attestation: Total time spent providing and/or coordinating discharge services: Time spent: Greater than 30 minutes Exam Const: Vital Signs, click to edit/add: Vital Signs - 24 hr 04/18/22 19:14 04/18/22 19:17 04/18/22 19:37 Temperature 99.2 F 99.2 F Pulse Rate Pulse Rate [Right Pulse Oximeter] 103 H 103 H Respiratory Rate 16 16 Blood Pressure Blood Pressure [Ri ght Arm] 135/94 H 135/94 H Pulse Oximetry 97 98 99 Oxygen Delivery Me thod Room Air Room Air 04/18/22 23:00 04/18/22 23:00 04/18/22 23:00 Temperature 99.0 F Pulse Rate 90 Pulse Rate [Right Pulse Oximeter] 91 91 Respiratory Rate 16 16 Blood Pressure Blood Pressure [Ri ght Arm] 139/97 H Pulse Oximetry 98 Oxygen Delivery Me thod Room Air 04/19/22 03:00 04/19/22 08:00 04/19/22 08:00 Temperature 99.0 F 98.5 F Pulse Rate Pulse Rate [Right Pulse Oximeter] 91 98 98 Respiratory Rate 16 14 14 Blood Pressure Blood Pressure [Ri ght Arm] 139/97 H 144/101 H Pulse Oximetry 98 98 Oxygen Delivery Me thod Room Air Room Air 04/19/22 12:00 04/19/22 15:00 04/19/22 15:56 Temperature 98.3 F 98.8 F Pulse Rate Pulse Rate [Right Pulse Oximeter] 100 107 H 107 H Respiratory Rate 16 16 16 Blood Pressure Blood Pressure [Ri ght Arm] 135/92 H 152/90 H Pulse Oximetry 99 99 Oxygen Delivery Me thod Room Air Room Air 04/19/22 16:44 Temperature 98.8 F Pulse Rate 90 Pulse Rate [Right Pulse Oximeter] Respiratory Rate 16 Blood Pressure 152/90 H Blood Pressure [Ri ght Arm] Pulse Oximetry Oxygen Delivery Me thod DS: Data Data Completed and Pending Labs on day of discharge: Labs from last 24 hours 04/19/22 04/19/22 04/19/22 15:38 15:38 06:32 WBC RBC Hgb Hct MCV MCH MCHC RDW Coeff of [place] Plt Count Neut % (Auto) Lymph % (Auto) [place] % (Auto) Eos % (Auto) Baso % (Auto) Neut # (Auto) Lymph # (Auto) [place] # (Auto) Eos # (Auto) Baso # (Auto) Abs Immat Gran (auto) VBG pH VBG pCO2 VBG pO2 VBG HCO3 Sodium 128 L Potassium 3.5 L Chloride 92 L Carbon Dioxide 28 BUN 12 Creatinine 0.7 Estimated Creat Clear 137.60 Estimated GFR 116 Glucose 140 H Calcium 8.4 Ionized Calcium [place] 1.10 L Magnesium 1.6 Total Bilirubin GGT AST ALT Alkaline Phosphatase C-Reactive Protein Total Protein Albumin Lipase TSH 1.460 04/19/22 04/19/22 04/19/22 06:32 06:32 06:32 WBC 9.33 RBC 4.07 L Hgb 12.7 L Hct 35.9 L MCV 88 MCH 31 MCHC 35 RDW Coeff of [place] 11.2 L Plt Count 205 Neut % (Auto) 72.5 H Lymph % (Auto) 12.5 L [place] % (Auto) 13.8 H Eos % (Auto) 0.6 Baso % (Auto) 0.3 Neut # (Auto) 6.80 Lymph # (Auto) 1.20 [place] # (Auto) 1.30 H Eos # (Auto) 0.06 Baso # (Auto) 0.03 Abs Immat Gran (auto) 0.03 VBG pH VBG pCO2 VBG pO2 VBG HCO3 Sodium 126 L Potassium 3.1 L Chloride 91 L Carbon Dioxide 28 BUN 6 Creatinine 0.6 Estimated Creat Clear 160.53 Estimated GFR 121 Glucose 101 Calcium 8.1 L Ionized Calcium [place] 1.07 L Magnesium 1.7 Total Bilirubin 0.7 GGT 59 H AST 64 H ALT 55 H Alkaline Phosphatase 48 C-Reactive Protein 3.9 H Total Protein 6.0 Albumin 3.5 Lipase 128 TSH 04/18/22 04/18/22 20:07 20:07 WBC RBC Hgb Hct MCV MCH MCHC RDW Coeff of [place] Plt Count Neut % (Auto) Lymph % (Auto) [place] % (Auto) Eos % (Auto) Baso % (Auto) Neut # (Auto) Lymph # (Auto) [place] # (Auto) Eos # (Auto) Baso # (Auto) Abs Immat Gran (auto) VBG pH 7.479 H VBG pCO2 45 VBG pO2 29.2 VBG HCO3 33 H Sodium 120 L* Potassium 3.5 L Chloride 83 L Carbon Dioxide 30 BUN 9 Creatinine 0.7 Estimated Creat Clear 137.60 Estimated GFR 116 Glucose 126 H Calcium 7.9 L Ionized Calcium [place] Magnesium Total Bilirubin GGT AST ALT Alkaline Phosphatase C-Reactive Protein Total Protein Albumin Lipase TSH Discharge Plan Discharge Disposition: Home, Self-Care Date of Admission: 04/17/22 20:15 Attending Provider on Discharge: Vero Pathak Primary Care Provider: Provider,Not a Local Condition: Unchanged Anticipated Discharge Date/Time: 04/19/22 16:32 Discharge Medications: New lisinopril 20 mg tablet 20 mg PO DAILY Qty: 30 2RF sodium chloride 1 gram tablet 1,000 mg PO BID PRN (Reason: electrolyte replenishment) Qty: 60 0RF Effer-K 25 mEq Tablet, Effervescent 25 meq PO BID Qty: 30 0RF omeprazole 40 mg capsule,delayed release(DR/EC) 40 mg PO DAILY Qty: 30 2RF Continued atorvastatin 40 mg tablet 40 mg PO DAILY calcium carbonate [Calcium 500] 500 mg calcium (1,250 mg) tablet,chewable 1,000 mg PO BID PRN Discontinued lisinopril-hydrochlorothiazide 20-25 mg tablet 1 tab PO DAILY Label Comments: TAKE 1 TABLET BY MOUTH EVERY DAY Discharge Orders: Discharge Order (Routine); Ordered 04/19/22 Ordered By: Vero Pathak Patient Education: Lisinopril (By mouth), Omeprazole (By mouth), Potassium Supplement (By mouth), Sodium Chloride (By mouth), Hyponatremia (DC), Hypokalemia (DC) Activity Level: Activity as Tolerated Discharge Diet: 2000 ml Fluid Restriction Diet Detail: free water limit is 2,000 ml (2 liters) per 24 hours for the next 2 days, until your labs are checked. okay to eat a normal diet; salty foods - in moderation - ok. pretzels, pizza, etc actually recommended! Follow Up Appointments: Provider,Not a Local [Primary Care Provider] - 04/24/22 (find a lab appt for Wednesday (BMP, magnesium, CBC without diff) and f/u appt this week with either [facility] or [facility] primary care (Debbie, Zaid, etc)) Forms: [employer] Info Instructions Discharge Comments: low sodium (hyponatremia) is likely from: excessive free water intake during a GI virus, HCTZ (hydrochlorothiazide) part of your blood pressure pill also worsens this, and you likely had a [id number] baseline from chronic intake of vodka. free water goal is an ounce per kg per day get connected with a local PCP and get labs this week and your blood pressure checked and go over abstinence plan from alcohol.
--- NOTE | 2022-04-19 17:45 | PC.NURSE ---
Discharge: Patient pleasant and cooperative. Patient Vitally stable, lungs clear, BS WNL, IV removed, catheter intact. Patient independent in room and denies pain. Patient tolerating regular diet, with no nausea. Patient drinking fluids and urinating, No BM. Patient signed discharge form and belongings sheet. Patient had no further questions regarding discharge information. Patient left the floor by foot with and daughter, with belongings at [id number].
== END 2022-04-19 17:16 | disposition home or self-care (01) | DRG 641 ==
LOC: ED 18:49 → MEDSURG 20:23
PROVIDERS: Family Medicine; Admitting Provider Family Medicine; Emergency Provider Emergency Medicine Emergency Medical Services; Visit Provider Family Medicine
DX: E87.1 Hypo-osmolality and hyponatremia (principal); A08.39 Other viral enteritis; F10.239 Alcohol dependence with withdrawal, unspecified; K70.0 Alcoholic fatty liver; E87.6 Hypokalemia; E83.42 Hypomagnesemia; D72.829 Elevated white blood cell count, unspecified; I10 Essential (primary) hypertension; K21.9 Gastro-esophageal reflux disease without esophagitis; E78.5 Hyperlipidemia, unspecified
CPT/HCPCS: 36415; 71045; 74177; 80048; 80053; 80076; 80306; 81001; 82330; 82803; 82977; 83690; 83735; 84145; 84443; 85025; 86140; 87635; 94761; 99285; 99291; A9270; C9113; J0610; J2060; J2405; J3480; J7030; J7120; Q9967

== ENCOUNTER 2023-10-24 16:08 | Emergency (ER) | payer BC, SELFPAY ==
[2023-10-24 16:16] VITALS: BP 120/74; PULSE 70; RESP 16; TEMP 36.7; O2SAT 97; BMI 24.4
--- NOTE | 2023-10-24 16:23 | ED.WOUNDLAC ---
HPI - Wound/Laceration General Time Seen by Provider: 16:23 Date Seen: 10/24/23 Chief Complaint: Laceration/Wound Stated Complaint: Laceration left pointer finger Time Seen by Provider: 10/24/23 16:12 Source: patient and RN notes reviewed Mode of arrival: ambulatory Limitations: no limitations History of Present Illness HPI narrative: This 48-year-old male is coming into the ER with an actively bleeding left 2nd finger after an injury with a miter saw. They were doing a construction project at home, he was cutting wood and accidentally caught his finger. His last tetanus was in 2013. The finger has been actively bleeding, he states there is ?road rash? at the end of the finger and a cut in the middle. It is the middle portion that is bleeding. No other injury. Onset (ago): minute(s) Place: home Patient tetanus UTD: No Related Data Home Medications Medication Instructions Recorded Confirmed atorvastatin 40 mg tablet 40 mg PO DAILY 04/17/22 10/12/23 calcium carbonate (Calcium 500) 1,000 mg PO BID PRN 04/18/22 10/12/23 Previous Rx's Medication Instructions Recorded lisinopril 20 mg tablet 20 mg PO DAILY #30 tabs 04/19/22 omeprazole 40 mg capsule,delayed 40 mg PO DAILY #30 caps 04/19/22 release potassium bicarbonate-citric acid 25 meq PO BID #30 ea 04/19/22 25 mEq effervescent tablet (Effer-K) sodium chloride 1 gram tablet 1,000 mg PO BID PRN electrolyte 04/19/22 replenishment #60 tabs Allergies Allergy/AdvReac Type Severity Reaction Status Date / Time No Known Drug Allergies Allergy Verified 10/24/23 16:19 Review of Systems Narrative: As per HPI. PFSH PFS Medical History Essential hypertension ?I10 - Essential (primary) hypertension (ICD-10) Gastroenteritis ?K52.9 - Noninfective gastroenteritis and colitis, unspecified (ICD-10) Hyperlipidemia ?E78.5 - Hyperlipidemia, unspecified (ICD-10) Surgical History History of colonoscopy ?Z98.890 - Other specified postprocedural states (ICD-10) Social History Highest level of school completed/degree received: Bachelor's degree Smoking Status: Never smoker Do you use any of these nicotine containing products: None Second hand tobacco smoke exposure: No How often do you have a drink containing alcohol: 2-3 times a week Alcohol type: hard liquor How many standard drinks containing alcohol do you have on a typical day: 3 or 4 How often do you have six or more drinks on one occasion: Never AUDIT-C Alcohol total score: 4 Non-prescribed substance use: denies use Caffeine: No service: No Exam Const: Vital Signs, click to edit/add: Vital Signs - 24 hr 10/24/23 16:16 Temperature 98.0 F Pulse Rate [Right Pulse Oximeter] 70 Respiratory Rate 16 Blood Pressure [Ri ght Upper Arm] 120/74 Pulse Oximetry 97 Oxygen Delivery Me thod Room Air Actively bleeding left second finger from palmar mid portion. Denuded epithelium over pad of the finger. Patient having significant oozing, no arterial appearance to bleed. Did apply a finger tourniquet, bleeding ceased. In the mid palmar phalanx of this left 2nd finger there is denuded epithelium but in the central portion there is a deeper laceration where the bleeding seems to be coming from. Patient prior to the tourniquet was able to demonstrate full flexion extension with preserve strength, normal distal sensation. Documenting provider has reviewed patient's vital signs: yes Course Course ED Course: Wound was repaired per procedure note. Tdap will be updated. Vital Signs Vital signs: Initial Vital Signs Temperature 98.0 F 10/24/23 16:16 Temperature Source Temporal Artery Scan 10/24/23 16:16 Pulse Rate 70 10/24/23 16:16 Pulse Rhythm Regular 10/24/23 16:16 Pulse Strength 3+ Normal 10/24/23 16:16 Respiratory Rate 16 10/24/23 16:16 Blood Pressure 120/74 10/24/23 16:16 Blood Pressure Mean 89 10/24/23 16:16 Blood Pressure Position Sitting 10/24/23 16:16 Pulse Oximetry 97 10/24/23 16:16 Oxygen Delivery Method Room Air 10/24/23 16:16 Vital Signs Temperature 98.0 F 10/24/23 16:16 Pulse Rate 70 04/14/24 16:16 Respiratory Rate 16 10/24/23 16:16 Blood Pressure 120/74 10/24/23 16:16 Pulse Oximetry 97 10/24/23 16:16 Oxygen Delivery Method Room Air 10/24/23 16:16 Temperature 98.0 F 10/24/23 16:16 Pulse Rate 70 10/24/23 16:16 Respiratory Rate 16 10/24/23 16:16 Blood Pressure 120/74 10/24/23 16:16 Pulse Oximetry 97 10/24/23 16:16 Oxygen Delivery Method Room Air 10/24/23 16:16 Discharge Plan Discharge Clinical Impression: Finger laceration Qualifiers: Encounter type: initial encounter Finger: index finger Damage to nail status: without damage Foreign body presence: without foreign body Laterality: left Qualified Code(s): S61.211A - Laceration without foreign body of left index finger without damage to nail, initial encounter Patient Disposition: Home, Self-Care Condition: Stable Instructions: Care For Your Stitches (ED), Finger Laceration (ED) Additional Instructions: Leave current dressing on, can change in morning. Use bacitracin and bandages twice a day or as needed to keep this wound clean and dry. You will need to follow up in clinic in 7-10 days to have the wound assess for suture removal. The superficial epithelium will probably take a couple of weeks to heal over. If there is any concern for infection of the suture site, please seek re-evaluation. You may wash your hands and shower as usual but should otherwise keep this wound clean and dry until healed and sutures out Activity Level: Activity as Tolerated Prescriptions: No Action atorvastatin 40 mg tablet 40 mg PO DAILY calcium carbonate [Calcium 500] 500 mg calcium (1,250 mg) tablet,chewable 1,000 mg PO BID PRN lisinopril 20 mg tablet 20 mg PO DAILY Qty: 30 2RF sodium chloride 1 gram tablet 1,000 mg PO BID PRN (Reason: electrolyte replenishment) Qty: 60 0RF Effer-K 25 mEq Tablet, Effervescent 25 meq PO BID Qty: 30 0RF omeprazole 40 mg capsule,delayed release(DR/EC) 40 mg PO DAILY Qty: 30 2RF Follow Up/Referrals: Valery Lewis MD [Primary Care Provider] - Stand Alone Forms: [facility] Info Instructions Procedures Laceration Laceration 1: Pre procedure diagnosis: Left 2nd finger laceration Post procedure diagnosis: Same Site marking: not applicable Name of person performing procedure: eGnie Montague Site: hand Side (If applicable): left Size (cm): 0.5 Description: linear Depth: simple, single layer Local Anesthetic: lidocaine 2% Amount of anesthesia used (mL): 4 (Digital block done, adequate anesthesia obtained with 2 mL on each side of the finger.) Pre-repair: wound explored, irrigated extensively and deep structures intact Skin layer closed with: other (Ethilon) Size (cm): 4-0 Number of sutures: 2 Technique: simple, interrupted Estimated blood loss (if any): less than 5mls Conclusion: patient tolerated procedure
[2023-10-24] MEDS: lidocaine HCL 2 % MULTIDOSE 20 ML VIAL 4 ML INJECTION (16:50)
[2023-10-24] MEDS: TETANUS/DIPHTH/PERTUSSIS 0.5 ML SYRINGE IM (17:20)
[2023-10-24] MEDS: BACITRACIN 0.9 GM PACKET 1 EACH TOPICAL (17:22)
== END 2023-10-24 17:33 | disposition home or self-care (01) ==
PROVIDERS: Emergency Provider Family Medicine; PCP Family Medicine
DX: S61.211A Laceration without foreign body of left index finger without damage to nail, initial encounter (principal); W31.2XXA Contact with powered woodworking and forming machines, initial encounter; Z23 Encounter for immunization
CPT/HCPCS: 12001; 90471; 90715; 99283; A9270

== ENCOUNTER 2023-11-10 09:11 | Outpatient (CLI) | payer BC, SELFPAY ==
--- NOTE | 2023-11-26 07:17 | W.PM.SLEEP ---
Sleep Study Details Details Interpreting Provider: Lorena Date of Sleep Study: 11/10/23 Sleep Study Details: STUDY TYPE:? Home unattended ? BMI:? Not recorded ORDERING PROVIDER:Brea Carrillo INDICATION:? Concern about sleep apnea ? SLEEP SUMMARY:? 452 minutes monitored RESPIRATORY SUMMARY:? AHI 13.7 Low oxygen 82 2.1% of study oxygen less than 90% Snoring 91.7% PERIODIC LIMB MOVEMENTS OF SLEEP:? [] CARDIAC:? [] IMPRESSION:? [] RECOMMENDATION: []
--- OUTSIDE RECORDS SUMMARY | 2023-11-29 14:46 | XMS_ITS | Clinical Summary ---
Author Name Unknown Organization [employer] [facility] Address [place], [place] [address] Care Team Providers Care Nurse Practitioner Physicians Assistant Name Role Phone Charmaine Hurd DIRECTOR OF TESTING Unavailable [phone] Robin Negrete MD Primary Care Provider Allergies Active Allergy Reactions Criticality Noted Date Comments Lactose Other - Describe In Comment Field Congestion Medications Medication Sig Dispensed Refills Start Date End Date Status atorvastatin (LIPITOR) 40 mg tabletIndications:Hyp erlipidemia with target LDL less than 130 Take 1 Tablet (40 mg) by mouth once daily. 90 Tablet 3 07/19/2023 Active escitalopram oxalate (LEXAPRO) 10 mg tabletIndications:Dep ression with anxiety Take 1 Tablet (10 mg) by mouth every morning. 90 Tablet 3 07/19/2023 Active lisinopriL (PRINIVIL; ZESTRIL) 20 mg tabletIndications:HTN (hypertension) Take 1 Tablet (20 mg) by mouth once daily. 90 Tablet 3 07/19/2023 Active Active Problems Problem Noted Date Diagnosed Date Adenomatous polyp 11/03/2023 Anxiety and depression 07/19/2023 Benign essential HTN 07/19/2023 Fracture of scaphoid bone of wrist 02/24/2010 Rectal bleeding 12/05/2009 Overview: Anoscopy 5/10: anal fissure Colonoscopy 5.10: Internal hemorrhoids Polyp, f/u 3 yrs Elevated blood pressure read ing without diagnosis of hypertension 10/24/2009 Hyperlipidemia LDL goal < 130 10/24/2009 Resolved Problems Problem Noted Date Diagnosed Date Resolved Date Hyperlipemia 10/24/2009 Encounters Date Type Department Care Team Description 11/03/2023 9:40 AM CDT Procedure Only [facility] [address] [place] [address] Robin Negrete MD Suture Removal (Index finger on left hand,... 11/03/2023 Travel 11/01/2023 Travel 10/24/2023 Nurse Triage [facility] [address] [place] [address] Valery Lewis MD Error-please disregard 09/22/2023 3:45 PM CDT Telemedicine [facility] [address] [place] [address] Shaista Diego PsyD, ANTONIO Individual Therapy; Trmt Plan from Last 3 Months Immunizations Name Administration Dates Next Due COVID-19 Vaccine Spikevax (M oderna 50mcg/0.5mL) 12YO+ [id number] Formula PF 07/19/2023 COVID-19 vaccine (IQR Consulting-Bio NTech 30mcg/0.3mL) 12YO+ BIVALENT PF, MDV 04/02/2022 COVID-19 vaccine (Pfizer-Bio NTech 30mcg/0.3mL) PF, MDV 06/21/2021,11/04/2020,10/14/2020 Influenza, IIV3 (Age >=3 years) 05/23/2007 Influenza, IIV4 07/19/2023, 2,09/20/2019,2018,05/17/2018,08/17/2017,04/22/2016,1 ,05/09/2014 Td (Age >=7 Years) 05/23/1996 Tdap 10/24/2023,12/17/2006 Tdap, Unspecified 09/11/2013 Family History Medical History Relation Name Comments Other Brother mentally retard ed Heart Disease Father Hyperlipidemia Father Stroke Father Seizures Mother Cancer-colon No Family History Cancer-prostate No Family History Diabetes No Family History Relation Name Status Comments Brother (Age 23) Father Alive Mother Alive Social History Tobacco Use Types Packs/Day Years Used Date Smoking Tobacco: Never Smokeless Tobacco: Never Tobacco Cessation:Counseling Given: No Alcohol Use Standard Drinks/Week Comments Not Currently 0 (1 standard drink = 0.6 oz pur e alcohol) last drink last week PHQ-2 Answer Date Recorded PHQ-2 TOTAL SCORE 0 09/22/2023 Social Connections Answer Date Recorded Frequency of Communication with Friends and Fami ly 0 11/03/2023 Financial Resource Strain Answer Date R ecorded Difficulty of Paying Living Expenses 3 11/03/2023 Difficulty of Paying Living Expenses Not on file 11/03/2023 Food Insecurity Answer Date Recorded Worried About Running Out of Food in the Last Ye ar 1 11/03/2023 Transportation Needs Answer Date Record ed Lack of Transportation (Medical) 1 11/03/2023 Housing Stability Answer Date Recorded Unable to Pay for Housing in the Last Year 1 11/03/2023 Sex and Gender Information Value Date Recorded Sex Assigned at Male 05/13/2023 10:45 AM CDT Gender Identity Male 05/13/2023 10:45 AM CDT Sexual Orientation Straight 05/13/2023 10 :45 AM CDT Obstetrics History Last Filed Vital Signs Vital Sign Reading Time Taken Comments Blood Pressure 109/72 11/03/2023 9:45 AM CDT Pulse 59 11/03/2023 9:45 AM CDT Temperature 37 ??C (98.6 ??F) 04/23/2022 2:23 PM CDT Respiratory Rate 16 02/24/2010 9:36 AM CDT Oxygen Saturation 99% 11/03/2023 9:45 AM CDT Inhaled Oxygen Concentration - - Weight 79.6 kg (175 lb 6.4 oz) 11/03/2023 9:45 A M CDT Height 177 cm (5' 9.69) 07/19/2023 8:35 AM CLERK OF WORKS Body Mass Index 25.4 07/19/2023 8:35 AM CLERK OF WORKS Plan of Treatment Health Maintenance Due Date Last Done Comments Pneumococcal series for age 6-64 (1 of 2 - PCV) 1983 Influenza for age 9-49 03/12/2024 , 05/22/2022, 09/20/2019, Additional history exists BMI (ht and wt on same day) for age 18+ 07/19/2024 07/19/2023, 05/22/2022, 04/23/2022 Depression screening for age 12+ 09/21/2024 09/22/2023, 05/13/2023, 03/16/2023, Additional history exists Colonoscopy through age 75 06/25/202606/25 (Verified in Care Everywhere or Patient Record), 12/02/2009 Lipids for age 45-75 07/19/2028 07/19/2023, 05/22/20 Tetanus booster 10/23/2033 10/24/2023, 0 09/2013, 12/17/2006, Additional history exists Hepatitis C screening for ag e 18-79 Completed 05/22/2022 HIV for age 15-65 Completed 09/28/2022 COVID-19 vaccine series Completed 07/19/19, 04/02/2022, 06/21/2021, Additional history exists Tdap Completed 10/24/2023, 0 09/2013, 12/17/2006 Procedures Procedure Name Priority Date/Time Associated Diagnosis Comments LIPID PANEL W REFLEX MEASURED LDL Routine 07/19/2023 9:00 AM CLERK OF WORKS Hyperlipidemia with target LDL less than 130 LC HIV-1/O/2, 4TH GENERATION Routine 09/28/2022 12:57 PM CDT Screening for HIV (human immunodeficiency virus) ANTI HCV Routine 05/22/2022 12:09 PM CLERK OF WORKS Need for hepatitis C screening test SCAN-COLONOSCOPY 12/02/2009 12:0 0 AM CDT from Last 3 Months or Most Recently Relevant to Health Maintenance Results * LIPID PANEL W REFLEX MEASURED LDL (07/19/2023 9:00 AM CLERK OF WORKS) CHOLESTEROL,TOTAL 157 100 - 199 mg/dL 07/19/2023 5:31 PM CLERK OF WORKS [facility] Comment: Cholesterol, Total Reference Ranges Desirable <200 mg/dL Borderline 200-239 mg/dL High >=240 mg/dL TRIGLYCERIDES 66 <150 mg/dL 07/19/2023 5:31 PM CLERK OF WORKS [facility] HDL CHOLESTEROL 46 >40 mg/dL 5:31 PM [facility] TRAL LAB[facility] NON-HDL CHOLESTEROL 111 <145 mg/dl 07/19/2023 5:31 PM [facility] TR[facility] CHOL/HDL RATIO 3.41 <4.50 07/19/2023 5:31 PM [facility] TRAL LAB[facility] LDL CHOLESTEROL 98 <=130 mg/dL 07/19/2023 5:31 PM CLERK OF WORKS [facility] TRAL LABORATORY VLDL CHOLESTEROL 13 <=30 mg/dL 07/19/2023 5:31 PM [facility] TRAL LABORATORY PROVIDER ORDERED STATUS RANDOM 07/19/2023 5:31 PM [facility] TRAL LAB[facility] Blood BLOOD SPECIMEN / Unknown Venipuncture / Unknown 07/19/2023 9:00 AM CLERK OF WORKS 07/19/2023 9:04 AM CLERK OF WORKS Robin Negrete MD CHEMISTRY Performing Organization Address [facility] Phone Number [facility] [address] [place] [address], * LC HIV-1/O/2, 4TH GENERATION (09/28/2022 12:57 PM CDT) HIV Scr 4th Gen Non Reactive Non Reactive 10/02/2022 1:08 AM CDT [facility] ([facility] Comment: HIV Negative HIV-1/HIV-2 antibodies and HIV-1 p24 antigen were NOT detected. There is no laboratory evidence of HIV infection. Blood BLOOD SPECIMEN / Unknown Venipuncture / Unknown 09/28/2022 12:57 PM CDT 09/28/2022 1:00 PM CDT Narrative [facility] - 10/02/2022 1:08 AM CDT Performed at: ??01 - [address] ??[id number] Breaker Off: Dano Valdes MD, Phone: ??[phone] Valery Lewis MD LABORATORY [facility] ([facility]) [address] [place] [address], * ANTI HCV (05/22/2022 12:09 PM CLERK OF WORKS) HEPATITIS C ANTIBODY Non-React ky Non-React ky 05/24/2022 8:09 PM CLERK OF WORKS [facility] Comment:Antibodies to HCV no t detected; does not exclude the possibility of exposure to HCV. Blood BLOOD SPECIMEN / Unknown Venipuncture / Unknown 05/22/2022 12:09 PM CLERK OF WORKS 05/22/2022 12:09 PM CLERK OF WORKS Valery Lewis MD SEND OUTS [facility]EN[facility]AL LABORATORY [address] [place] [address], [place] * SCAN-COLONOSCOPY (12/02/2009 12:00 AM CDT) Narrative Procedure Note Scanner - 12/02/2009 12:00 AM CDT Scanner OTHER from Last 3 Months or Most Recently Relevant to Health Maintenance Care Teams Nurse Practitioner Physicians Assistant Relationship Specialty Start Date End Date Robin Negrete MD [address] [place] [address] PCP - General Family Practice 11/03/23 Charmaine Hurd, DIRECTOR OF TESTING [address] [place] [address] Stamp Pad Finisher Artillery Officer 11/11/22
--- OUTSIDE RECORDS SUMMARY | 2023-11-29 14:46 | XMS_ITS | Encounter Summary ---
Author Name Unknown Organization [facility] Address [address] [place] [address] Care Team Providers Care Emr Trainer Name Role Phone Jyoti Pan PA-C Primary Care Provider [phone] Encounter Details Date Type Department Care Team (Late st Contact Info) Description 02/27/2016 Notes/Orders [facility] Card[facility] Preventive Services [address] [place], [place] [address] Robert Blake MD [address], [place] [address] Hyperlipidemia, unspecified hyperlipidemia type (Primary Dx) Social History Tobacco Use Types Packs/Day Years Used Date Smoking Tobacco: Never Assessed Sex and Gender Information Value Date Recorded Sex Assigned at Not on file Gender Identity Not on file Sexual Orientation Not on file documented as of this encounter Plan of Treatment Not on file documented as of this encounter Visit Diagnoses Diagnosis Hyperlipidemia, unspecified hyperlipidemia type (HRC)- Primary documented in this encounter Care Teams Emr Trainer Relationship Specialty Start Date End Date Jyoti Pan PA-C [address] [facility] [address] [place] [address] PCP - General Physician [employer] 02/04/17 documented as of this encounter
--- OUTSIDE RECORDS SUMMARY | 2023-11-29 14:46 | XMS_ITS | Clinical Summary ---
Author Name Unknown [facility] Address [address], [place] [address] Care Team Providers Care Instrument Operator Name Role Phone Jyoti Pan PA-C Primary Care Provider [phone] Source Comments You are receiving this document as you are listed as the primary care provider,follow-up provider, or the patient has been referred to you for consultation.This is in compliance with the Medicare and[facility] EHR Incentive Program,which states Providers who transition their patient to another setting of careor provider of care or refers their patient to another provider of care shouldprovide summary care record for each transition of care or referral. [facility] Allergies Active Allergy Reactions Criticality Noted Date Comments Lactose Other, see comments 08/17/2017 Congestion Medications Medication Sig Dispensed Refills Start Date End Date Status fluticasone propionate (FLONASE) 50 MCG/ACT nasal solution Place 2 Sprays into both nostrils daily. 16 g 11 04/23/2021 Active Additional Information Patient not taking.Reported on 04/17/2022 lisinopril-hydroCHLOR Othiazide (PRINZIDE) 20-25 MG tabletIndications:Ess ential hypertension (HRC) TAKE 1 TABLET BY MOUTH EVERY DAY 90 Tablet 3 05/01/2021 Active atorvastatin (LIPITOR) 40 MG tabletIndications:Hyp erlipidemia, unspecified hyperlipidemia type (HRC) TAKE 1 TABLET BY MOUTH EVERY DAY 90 Tablet 04/16/2022 Active Active Problems Problem Noted Date Diagnosed Date Adenoma of colon 06/28/2021 Overview: Colonoscopy completed 06/2021, repeat in 5 years For adenoma surveillance Nasal obstruction 04/23/2021 Overview: Added automatically from request for surgery [id number] Olecranon bursitis, right elbow 03/11/2021 Hyponatremia 02/04/2021 Elevated liver function tests 02/04/2021 Hyperlipidemia 04/22/2016 Essential hypertension 12/08/2013 Resolved Problems Problem Noted Date Diagnosed Date Resolved Date Colon polyp 12/03/2009 06/28/2021 Overview: 10mm tubular adenoma - see ScanDoc Immunizations Name Administration Dates Next Due Influenza IIV4 (Quadrivalent ) 0.5mL (62777) 09/20/2019,06/07/2019,05/17/2018, 018,04/22/2016,05/10/2015,05/09/2014 Influenza Vaccine (3+years) ([facility]) 05/23/2007 Pfizer Monovalent 12+ Purple Top 11/04/2020,04/0 11/2020 TDAP (ADACEL) 12/17/2006 TDAP (BOOSTRIX) 09/11/2013 Td 05/23/1996 Family History Medical History Relation Name Comments Anxiety Father Heart Attack Father High Cholesterol Father Hypertension Father Tremor Father questionably pancreatic Maternal Uncle qu estionably pancreatic cancer Cancer Paternal Grandfather overweight Sister Cancer, Colon Negative Family History Cancer, Prostate Negative Family History Relation Name Status Comments Father Alive Mother Alive Brother Alive Maternal Grandfather Maternal Grandmother Maternal Uncle Paternal Grandfather Paternal Grandmother Sister Alive Social History Tobacco Use Types Packs/Day Years Used Date Smoking Tobacco: Never Smokeless Tobacco: Never Tobacco Cessation:Counseling Given: Not Answered Alcohol Use Standard Drinks/Week Comments Not Currently 5 (1 standard drink = 0.6 oz pur e alcohol) weekly - 7 PHQ-2 Answer Date Recorded PHQ-2 Score 0 01/31/2021 Sex and Gender Information Value Date Recorded Sex Assigned at Not on file Gender Identity Not on file Sexual Orientation Not on file Last Filed Vital Signs Vital Sign Reading Time Taken Comments Blood Pressure 111/77 06/13/2021 12:00 PM AIRSET MOLDER Pulse 65 06/13/2021 12:00 PM AIRSET MOLDER Temperature 37 ??C (98.6 ??F) 12/15/2016 12:01 PM CDT Respiratory Rate 16 06/13/2021 12:00 PM AIRSET MOLDER Oxygen Saturation 96% 06/13/2021 12:00 PM AIRSET MOLDER Inhaled Oxygen Concentration - - Weight 79.8 kg (176 lb) 04/17/2022 9:58 AM CDT p er pt Height 177.8 cm (5' 10) 04/17/2022 9:58 AM CDT per pt Body Mass Index 25.25 04/17/2022 9:58 AM CDT Plan of Treatment Health Maintenance Due Date Last Done Comments Hep C Screening (Preventive Services) 1975 HepB (1) 01/03/1996 Adult Preventive Visit 05/17/2019 05/17/2018 COVID-19 Vaccine ( season) 2023 04/02/2022, 06/21/2021, 11/04/2020, Additional history exists DTaP/Tdap/Td (3 - Tdap) 09/12/2023 09/12/19 14, 12/17/2006, 05/23/1996 Influenza (Season Ended) 2024 020, 06/07/2019, 05/17/2018, Additional history exists Cholesterol 01/31/2026 01/31/2021, 02/09, 09/20/2019, Additional history exists Colonoscopy 06/13/2026 06/13/2021 Zoster/Shingles (1 of 2) 2027 HIV Screening (Preventive Services) Completed 05/17/2018 HepA Aged Out No longer eligi ble based on patient's age to complete this topic Hib Aged Out No longer eligi ble based on patient's age to complete this topic IPV (Polio) Aged Out No longer eligi ble based on patient's age to complete this topic MCV4 Aged Out No longer eligi ble based on patient's age to complete this topic Pneumococcal Aged Out No longer eligi ble based on patient's age to complete this topic Procedures Procedure Name Priority Date/Time Associated Diagnosis Comments ENDOSCOPY, COLON, SCREENING/DIAGNOS TIC Routine 06/13/2021 10:54 AM AIRSET MOLDER Hx of colonic polyp LIPID PANEL & DIRECT LDL (IF NEEDED) Routine 01/31/2021 2:03 PM CDT Hyperlipidemia, unspecified hyperlipidemia type HIV 1/2 AG/AB 4TH GEN Routine 05/17/2018 10:33 AM AIRSET MOLDER Screening for HIV (human immunodeficiency virus) from Last 3 Months or Most Recently Relevant to Health Maintenance Results * Endoscopy, Colon, Screening/Diagnostic (06/13/2021 10:54 AM AIRSET MOLDER) 06/13/2021 10:5 4 AM AIRSET MOLDER Narrative GI ([facility]) - 06/13/2021 10:54 AM AIRSET MOLDER Patient Name: Layton Bowers Procedure Date: 06/13/2021 10:54 AM Date of : 1975 Admit Type: Outpatient Age: 46 Note Status: Finalized Attending MD: Gurinder Maldonado , Procedure: ? Colonoscopy Indications: ? High risk colon cancer surveillance: ? Personal history of adenoma (10 mm or ? greater in size) Providers: ? Gloria Ly Patient Profile: ? 46-year-old man with history of ? advanced adenoma presented for ? surveillance colonoscopy. Referring MD: ?Kelton Smith MD Medicines: ? Midazolam 4 mg IV, Fentanyl 100 ? micrograms IV Complications: ? No immediate complications. Procedure: ? After I obtained informed consent, ? the scope was passed under direct ? vision. Throughout the procedure, the ? patient's blood pressure, pulse, and ? oxygen saturations were monitored ? continuously. The [id number] was ? introduced through the anus and ? advanced to the terminal ileum. The ? colonoscopy was performed without ? difficulty. The patient tolerated the ? procedure well. The quality of the ? bowel preparation was evaluated using ? the BBPS (Morton Bowel Preparation ? Scale) with scores of: Right Colon = ? 3, Transverse Colon = 3 and Left ? Colon = 3 (entire mucosa seen well ? with no residual staining, small ? fragments of stool or opaque liquid). ? The total BBPS score equals 9. Findings: ? The terminal ileum appeared normal. ? Retroflexion in the right colon was performed. ? Two sessile polyps were found in the transverse ? colon. The polyps were 2 to 4 mm in size. These ? polyps were removed with a cold snare. Resection and ? retrieval were complete. Verification of patient ? identification for the specimen was done. Estimated ? blood loss was minimal. ? Non-bleeding internal hemorrhoids were found during ? retroflexion. The hemorrhoids were medium-sized. ? The exam was otherwise without abnormality. Moderate Sedation: ? Moderate (conscious) sedation was administered by the ? endoscopy nurse and supervised by the endoscopist. ? The following parameters were monitored: oxygen ? saturation, heart rate, blood pressure, and response ? to care. Total physician intraservice time was 24 ? minutes. Impression: ?- The examined portion of the ileum ? was normal. ? - Two 2 to 4 mm polyps in the ? transverse colon, removed with a cold ? snare. Resected and retrieved. ? - Non-bleeding internal hemorrhoids. ? - The examination was otherwise ? normal. Recommendation: ?- Discharge patient to home (with ? escort). ? - High fiber diet. ? - Await pathology results. ? - Repeat colonoscopy date to be ? determined after pending pathology ? results are reviewed for surveillance. Procedure Code(s): ?? --- Professional --- ? 37948, Colonoscopy, flexible; with ? removal of tumor(s), polyp(s), or ? other lesion(s) by snare technique ? 79982, Moderate sedation; each ? additional 15 minutes intraservice ? time ? G0500, Moderate sedation services ? provided by the same physician or ? other qualified health care ? professional performing a ? gastrointestinal endoscopic service ? that sedation supports, requiring the ? presence of an independent trained ? observer to assist in the monitoring ? of the patient's level of ? consciousness and physiological ? status; initial 15 minutes of ? intra-service time; patient age 5 ? years or older (additional time may ? be reported with 31699, as ? appropriate) Diagnosis Code(s): ?? --- Professional --- ? Z86.010, Personal history of colonic ? polyps ? K64.8, Other hemorrhoids ? K63.5, Polyp of colon CPT copyright 2019 [employer]. All rights reserved. The codes documented in this report are preliminary and upon surgical coder review may be revised to meet current compliance requirements. Gurinder Maldonado, 06/13/2021 11:34:21 AM Number of Addenda: 0 Note Initiated On: 06/13/2021 10:54 AM ? Endoscopy Report Procedure Note Provider, MD Burak - 06/13/2021 Patient Name: Layton Bowers Procedure Date: 06/13/2021 10:54 AM Date of : 1975 Admit Type: Outpatient Age: 46 Note Status: Finalized Attending MD: Gurinder Maldonado , Procedure: Colonoscopy Indications: High risk colon cancer surveillance: Personal history of adenoma (10 mm or greater in size) Providers: Gloria Ly Patient Profile: 46-year-old man with history of advanced adenoma presented for surveillance colonoscopy. Referring MD: Kelton Smith MD Medicines: Midazolam 4 mg IV, Fentanyl 100 micrograms IV Complications: No immediate complications. Procedure: After I obtained informed consent, the scope was passed under direct vision. Throughout the procedure, the patient's blood pressure, pulse, and oxygen saturations were monitored continuously. The [id number] was introduced through the anus and advanced to the terminal ileum. The colonoscopy was performed without difficulty. The patient tolerated the procedure well. The quality of the bowel preparation was evaluated using the BBPS (Morton Bowel Preparation Scale) with scores of: Right Colon = 3, Transverse Colon = 3 and Left Colon = 3 (entire mucosa seen well with no residual staining, small fragments of stool or opaque liquid). The total BBPS score equals 9. Findings: The terminal ileum appeared normal. Retroflexion in the right colon was performed. Two sessile polyps were found in the transverse colon. The polyps were 2 to 4 mm in size. These polyps were removed with a cold snare. Resection and retrieval were complete. Verification of patient identification for the specimen was done. Estimated blood loss was minimal. Non-bleeding internal hemorrhoids were found during retroflexion. The hemorrhoids were medium-sized. The exam was otherwise without abnormality. Moderate Sedation: Moderate (conscious) sedation was administered by the endoscopy nurse and supervised by the endoscopist. The following parameters were monitored: oxygen saturation, heart rate, blood pressure, and response to care. Total physician intraservice time was 24 minutes. Impression: - The examined portion of the ileum was normal. - Two 2 to 4 mm polyps in the transverse colon, removed with a cold snare. Resected and retrieved. - Non-bleeding internal hemorrhoids. - The examination was otherwise normal. Recommendation: - Discharge patient to home (with escort). - High fiber diet. - Await pathology results. - Repeat colonoscopy date to be determined after pending pathology results are reviewed for surveillance. Procedure Code(s): --- Professional --- 89270, Colonoscopy, flexible; with removal of tumor(s), polyp(s), or other lesion(s) by snare technique 62034, Moderate sedation; each additional 15 minutes intraservice time G0500, Moderate sedation services provided by the same physician or other qualified health adult live in caregiver performing a gastrointestinal endoscopic service that sedation supports, requiring the presence of an independent trained observer to assist in the monitoring of the patient's level of consciousness and physiological status; initial 15 minutes of intra-service time; patient age 5 years or older (additional time may be reported with 15818, as appropriate) Diagnosis Code(s): --- Professional --- Z86.010, Personal history of colonic polyps K64.8, Other hemorrhoids K63.5, Polyp of colon CPT copyright 2019 [employer]. All rights reserved. The codes documented in this report are preliminary and upon surgical coder review may be revised to meet current compliance requirements. Gurinder Estebann, 06/13/2021 11:34:21 AM Number of Addenda: 0 Note Initiated On: 06/13/2021 10:54 AM Endoscopy Report Jyoti Pan PA-C PN GI PROCEDURE [facility] [place], [place] * Lipid Panel - LDLD If Trig High (01/31/2021 2:03 PM CDT) Cholesterol 194 0 - 199 mg/dL 01/31/2021 4:28 PM CDT [facility] Triglyceride 97 <=149 mg/dL 01/31/2021 4:28 PM CDT [facility] HDL Cholesterol 90 >=40 mg/dL 4:28 PM CDT [facility] LDL, Calculated 85 <130 mg/dL 4:28 PM CDT [facility] Non HDL Chol, Calculated 104 <=159 mg/dL 01/31/2021 4:28 PM CDT [facility] Cholesterol/HDL Ratio 2.2 01/31/2021 4:28 PM CDT [facility] Hours Fasting 12 01/31/2021 4:28 PM CDT [facility] Blood Venipuncture / Unknown 01/31/2021 2:03 PM CDT 01/31/2021 2:03 PM CDT Jyoti Pan PA-C LAB_1 [facility] [address] [place] [address], [facility] [address] [facility], [facility] [address] [place] [address], [facility] [phone] * HIV 1/2 Ag/Ab 4th Generation (05/17/2018 10:33 AM AIRSET MOLDER) HIV-1 p24 Ag and HIV-1/HIV-2 Ab Nonreactive Nonreactive PN SOFT 05/17/2018 10:3 3 AM AIRSET MOLDER 05/17/2018 12:22 PM AIRSET MOLDER Narrative [facility] - 05/17/2018 1:50 PM AIRSET MOLDER Performed at [facility] [address] [place] [address] CLIA number [id number] Jyoti Pan PA-C LAB[facility]1 [facility] [address] [place] [address] from Last 3 Months or Most Recently Relevant to Health Maintenance Care Teams Instrument Operator Relationship Specialty Start Date End Date Jyoti Pan PA-C [address] [address] PCP - General Physician Accounts Payable Or Receivable Clerk 02/04/17
== END 2023-11-10 09:12 | disposition home or self-care (01) ==
LOC: SLEEP 09:13
PROVIDERS: PCP Family Medicine; Visit Provider Otolaryngology
DX: G47.33 Obstructive sleep apnea (adult) (pediatric) (principal)
CPT/HCPCS: 95806

== ENCOUNTER 2024-02-18 10:33 | Day surgery (SDC) | payer BC, SELFPAY ==
[2024-02-18] VITALS (14 sets, daily range): BP systolic 99–142; BP diastolic 58–92; PULSE 46–72; RESP 16–18; TEMP 36.1–36.6; O2SAT 95–99; BMI 25.4
--- OUTSIDE RECORDS SUMMARY | 2024-02-18 10:37 | XMS_ITS | Encounter Summary ---
Author Organization [facility] Address [address] [place] [address] Care Team Providers Care Mail Superintendent Name Role Phone Jyoti Pan PA-C Primary Care Provider [phone] Encounter Details Date Type Department Care Team (Late st Contact Info) Description 02/27/2016 Notes/Orders [facility] Preventive Services [address] [place], [place] [address] Robert Blake MD [address] [place], [place] [address] Hyperlipidemia, unspecified hyperlipidemia type (Primary Dx) Social [...] Primary documented in this encounter Care Teams Mail Superintendent Relationship Specialty Start Date End Date Jyoti Pan PA-C 1000 [facility] [address] [place], [place] [id number] PCP - General Physician Oncology Nurse Navigator 02/04/17 documented as of this encounter
--- OUTSIDE RECORDS SUMMARY | 2024-02-18 10:37 | XMS_ITS | Clinical Summary ---
Author Organization [email or web address] Address [place], [place] [address] Care Team Providers Care Traverse Rod Assembler Name Role Phone Vickey Charmaine Nelson [facility] Unavailable [phone] Robin Negrete MD Primary Care Provider Allergies [...] Encounters Date Type Department Care Team Description 02/07/2024 Telephone [facility] [address] [facility] [address] Shaista Diego PsyD, LP Late Cancel Appointment (Work) 01/21/2024 1:15 PM CDT Office Visit [facility] [address] [place] [address] Robin Negrete MD Preoperative Exam (DOS: 02/18/2024, nasal septum, Dr. Carrillo, [facility] ) 01/21/2024 Travel from Last 3 Months Immunizations Name Administration Dates Next Due COVID-19 Vaccine Spikevax (M oderna 50mcg/0.5mL) 12YO+ 3284-5660 Formula PF 07/19/2023 COVID-19 vaccine (Pfizer-Bio NTech 30mcg/0.3mL) 12YO+ BIVALENT PF, MDV 04/02/2022 COVID-19 vaccine (Pfizer-Bio NTech 30mcg/0.3mL) PF, MDV 06/21/2021,11/04/2020,10/14/2020 Influenza, IIV3 (Age >=3 years) 05/23/2007 Influenza, IIV4 07/19/2023,,09/20/2019,2018,05/17/2018,08/17/2017,04/22/2016,1 ,05/09/2014 Td (Age >=7 Years) 05/23/1996 Tdap 10/24/2023,12/17/2006 Tdap, Unspecified 09/11/2013 Family History Medical History Relation Name Comments Other Brother mentally retard ed Heart Disease Father Hyperlipidemia Father Stroke Father Seizures Mother Anesthesia Problem No Family History Cancer-colon No Family History Cancer-prostate No Family History Diabetes No Family History Relation Name Status Comments Brother (Age 23) Father Alive Mother Alive Social History Tobacco Use Types Packs/Day Years Used Date Smoking Tobacco: Never Smokeless Tobacco: Never Tobacco Cessation:Counseling Given: No Alcohol Use Standard Drinks/Week Comments Not Currently 0 (1 standard drink = 0.6 oz pur e alcohol) PHQ-2 Answer Date Recorded PHQ-2 TOTAL SCORE [...] Sign Reading Time Taken Comments Blood Pressure 110/73 01/21/2024 1:05 PM CDT Pulse 77 01/21/2024 1:05 PM CDT Temperature 37 ??C (98.6 ??F) 04/23/2022 2:23 PM CDT Respiratory Rate 16 02/24/2010 9:36 AM CDT Oxygen Saturation 97% 01/21/2024 1:05 PM CDT Inhaled Oxygen Concentration - - Weight 76 kg (167 lb 9.6 oz) 01/21/2024 1:05 PM CDT Height 174 cm (5' 8.5) 01/21/2024 1:05 PM CDT Body Mass Index 25.11 01/21/2024 1:05 PM CDT Plan of Treatment Upcoming Encounters Date Type Department Care Team (Late st Contact Info) Description 03/06/2024 1:45 PM CDT Telemedicine [address] [place] [address] Shaista Diego PsyD, [address] [place] [address] Health Maintenance Due Date Last Done Comments Pneumococcal series for age 6-64 (1 of 2 - PCV) 1983 Influenza for age 9-49 03/12/2024 4, 05/22/2022, 09/20/2019, Additional history exists Depression screening for age 12+ 09/21/2024 09/22/2023, 05/13/2023, 03/16/2023, Additional history exists BMI (ht and wt on same day) for age 18+ 01/20/2025 01/21/2024, 07/19/2023, 05/22/2022, Additional history exists Colonoscopy through age 75 06/25/202606/25 (Verified in Care Everywhere or Patient Record), 12/02/2009 Lipids for age 45-75 07/19/2028 07/19/2023, 05/22/20 22 Tetanus booster 10/23/2033 10/24/2023, 030 09/2013, 12/17/2006, Additional history exists Hepatitis C screening for ag e 18-79 Completed 05/22/2022 HIV for age 15-65 Completed 09/28/2022 COVID-19 vaccine series Completed 07/19/19, 04/02/2022, 06/21/2021, Additional history exists Tdap Completed 10/24/2023, 030 09/2013, 12/17/2006 Procedures Procedure Name Priority Date/Time Associated Diagnosis Comments LIPID PANEL W REFLEX MEASURED LDL Routine 07/19/2023 9:00 AM PATTERNMAKER PLASTER Hyperlipidemia with target LDL less than 130 LC HIV-1/O/2, 4TH GENERATION Routine 09/28/2022 12:57 PM CDT Screening for HIV (human immunodeficiency virus) ANTI HCV Routine 05/22/2022 12:09 PM PATTERNMAKER PLASTER Need for hepatitis C screening test SCAN-COLONOSCOPY 12/02/2009 12:0 0 AM CDT from Last 3 Months or Most Recently Relevant to Health Maintenance Results * LIPID PANEL W REFLEX MEASURED LDL (07/19/2023 9:00 AM PATTERNMAKER PLASTER) CHOLESTEROL,TOTAL 157 100 - 199 mg/dL 07/19/2023 5:31 PM PATTERNMAKER PLASTER [facility] Comment: Cholesterol, Total Reference Ranges Desirable <200 mg/dL Borderline 200-239 mg/dL High >=240 mg/dL TRIGLYCERIDES 66 <150 mg/dL 07/19/2023 5:31 PM [facility] HDL CHOLESTEROL 46 >40 mg/dL 5:31 PM [facility] NON-HDL CHOLESTEROL 111 <145 mg/dl 07/19/2023 5:31 PM [facility] CHOL/HDL RATIO 3.41 <4.50 07/19/2023 5:31 PM [facility] LDL CHOLESTEROL 98 <=130 mg/dL 07/19/2023 5:31 PM [facility] VLDL CHOLESTEROL 13 <=30 mg/dL 07/19/2023 5:31 PM [facility] PROVIDER ORDERED STATUS RANDOM 07/19/2023 5:31 PM [facility] Blood BLOOD SPECIMEN / Unknown Venipuncture / Unknown 07/19/2023 9:00 AM PATTERNMAKER PLASTER 07/19/2023 9:04 AM PATTERNMAKER PLASTER Robin Negrete MD [facility] [address] [place] [address], * LC HIV-1/O/2, 4TH GENERATION (09/28/2022 12:57 PM CDT) HIV Scr 4th Gen Non Reactive Non Reactive 10/02/2022 1:[address] [facility] ([facility] Comment: HIV Negative HIV-1/HIV-2 antibodies and HIV-1 p24 antigen were NOT detected. There is no laboratory evidence of HIV infection. Blood BLOOD SPECIMEN / Unknown Venipuncture / Unknown 09/28/2022 12:57 PM CDT 09/28/2022 1:00 PM CDT Narrative [facility] ([facility]) - 10/02/2022 1:08 AM CDT Performed at: ??01 - [facility] [address] [place], [place] ??[id number] Financial Representative: Dano Valdes MD, Phone: ??[phone] Valery Lewis MD LABORATORY [facility] ([facility]) [address] [place] [address], * ANTI HCV (05/22/2022 12:09 PM PATTERNMAKER PLASTER) HEPATITIS C ANTIBODY Non-React ky Non-React ky 05/24/2022 8:09 PM PATTERNMAKER PLASTER [facility] Comment:Antibodies to HCV no t detected; does not exclude the possibility of exposure to HCV. Blood BLOOD SPECIMEN / Unknown Venipuncture / Unknown 05/22/2022 12:09 PM PATTERNMAKER PLASTER 05/22/2022 12:09 PM PATTERNMAKER PLASTER Valery Lewis MD SEND OUTS [facility] [address] [place] [address], [place] * SCAN-COLONOSCOPY (12/02/2009 12:00 AM CDT) Narrative Procedure Note Scanner - 12/02/2009 12:00 AM CDT Scanner OTHER from Last 3 Months or Most Recently Relevant to Health Maintenance Care Teams Traverse Rod Assembler Relationship Specialty Start Date End Date Robin Negrete MD [address] [place] [address] PCP - General Family Practice 11/03/23 Charmaine Hurd, [facility] [address] [place] [address] Inventory Technician Egg Processing Supervisor 11/11/22
--- OUTSIDE RECORDS SUMMARY | 2024-02-18 10:37 | XMS_ITS | Clinical Summary ---
Author Organization [facility] Address [address], [place] [address] Care Team Providers Care Portrait Photographer Name Role Phone Jyoti Pan PA-C Primary Care Provider [phone] Source Comments You are receiving this document as you are listed as the primary care provider,follow-up provider, or the patient has been referred to you for consultation.This is in compliance with the Medicare and[facility] EHR Incentive Program,which states Providers who transition their patient to another setting of careor provider of care or refers their patient to another provider of care shouldprovide summary care record for each transition of care or referral. [facility] Allerg[facility] Active Allergy Reactions Criticality Noted Date [...] Overview: Added automatically from request for surgery [id number] Olecranon bursitis, right elbow 03/11/2021 Hyponatremia 02/04/2021 Elevated liver function tests 02/04/2021 Hyperlipidemia 04/22/2016 Essential hypertension 12/08/2013 Resolved Problems Problem Noted Date Diagnosed Date Resolved Date Colon polyp 12/03/2009 06/28/2021 Overview: 10mm tubular adenoma - see ScanDoc Immunizations Name Administration Dates Next Due Influenza IIV4 (Quadrivalent ) 0.5mL (60338) 09/20/2019,06/07/2019,05/17/2018, 018,04/22/2016,05/10/2015,05/09/2014 Influenza Vaccine (3+years) ([facility]) 05/23/2007 Pfizer Monovalent 12+ Purple [...] Comments Blood Pressure 111/77 06/13/2021 12:00 PM EDUCATIONAL CONSULTANT Pulse 65 06/13/2021 12:00 PM EDUCATIONAL CONSULTANT Temperature 37 ??C (98.6 ??F) 12/15/2016 12:01 PM CDT Respiratory Rate 16 06/13/2021 12:00 PM EDUCATIONAL CONSULTANT Oxygen Saturation 96% 06/13/2021 12:00 PM EDUCATIONAL CONSULTANT Inhaled Oxygen Concentration - - Weight 79.8 [...] Tdap) 09/12/2023 09/12/19 14, 12/17/2006, 05/23/1996 Influenza (#1) 2024 09/20/2019, 05/13, 05/17/2018, Additional history exists Cholesterol 01/31/2026 01/31/2021, [...] COLON, SCREENING/DIAGNOS TIC Routine 06/13/2021 10:54 AM EDUCATIONAL CONSULTANT Hx of colonic polyp LIPID PANEL & DIRECT LDL (IF NEEDED) Routine 01/31/2021 2:03 PM CDT Hyperlipidemia, unspecified hyperlipidemia type HIV 1/2 AG/AB 4TH GEN Routine 05/17/2018 10:33 AM EDUCATIONAL CONSULTANT Screening for HIV (human immunodeficiency virus) from Last 3 Months or Most Recently Relevant to Health Maintenance Results * Endoscopy, Colon, Screening/Diagnostic (06/13/2021 10:54 AM EDUCATIONAL CONSULTANT) 06/13/2021 10:5 4 AM EDUCATIONAL CONSULTANT Narrative [facility]) - 06/13/2021 10:54 AM EDUCATIONAL CONSULTANT Patient Name: Layton Bowers Procedure Date: 06/13/2021 [...] oxygen saturations were monitored ? continuously. The [id number] was ? introduced through the anus and ? advanced to the terminal ileum. The ? colonoscopy was performed without ? difficulty. The patient tolerated the ? procedure well. The quality of the ? bowel preparation was evaluated using ? the BBPS (Ransom Bowel Preparation ? Scale) with scores of: [...] Procedure Code(s): ?? --- Professional --- ? 53851, Colonoscopy, flexible; with ? removal of tumor(s), polyp(s), or ? other lesion(s) by snare technique ? 19164, Moderate sedation; each ? additional 15 minutes [...] (additional time may ? be [place] [address], as ? appropriate) Diagnosis Code(s): ?? --- Professional --- ? Z86.010, Personal history of colonic ? polyps ? K64.8, Other hemorrhoids ? K63.5, Polyp of colon CPT copyright 2019 [employer]. All rights reserved. The codes documented in this report are preliminary and upon certified medical records coder review may be revised to meet [...] and oxygen saturations were monitored continuously. The [id number] was introduced through the anus and advanced to the terminal ileum. The colonoscopy was performed without difficulty. The patient tolerated the procedure well. The quality of the bowel preparation was evaluated using the BBPS (Ransom Bowel Preparation Scale) with scores of: Right [...] for surveillance. Procedure Code(s): --- Professional --- 07226, Colonoscopy, flexible; with removal of tumor(s), polyp(s), or other lesion(s) by snare technique 44635, Moderate sedation; each additional 15 minutes intraservice time G0500, Moderate sedation services provided by the same physician or other qualified health healthcare economics consultant performing a gastrointestinal endoscopic service that sedation supports, requiring the presence of an independent trained observer to assist in the monitoring of the patient's level of consciousness and physiological status; initial 15 minutes of intra-service time; patient age 5 years or older (additional time may be reported with 99899, as appropriate) Diagnosis Code(s): --- Professional --- Z86.010, Personal history of colonic polyps K64.8, Other hemorrhoids K63.5, Polyp of colon CPT copyright 2019 [employer]. All rights reserved. The codes documented in this report are preliminary and upon certified medical records coder review may be revised to meet current compliance requirements. Gurinder Estebann, 06/13/2021 11:34:21 AM Number of Addenda: 0 Note Initiated On: 06/13/2021 10:54 AM Endoscopy Report Jyoti Pan PA-C PN GI PROCEDURE ORDMalu BOBBY Performing Organization Address City/[facility]/ZIP Co de Phone Number [facility] ([facility]) [place], [place] * Lipid Panel - LDLD If Trig High (01/31/2021 2:03 PM CDT) Cholesterol 194 0 - 199 mg/dL 01/31/2021 4:28 PM CDT [facility] Triglyceride 97 <=149 mg/dL 01/31/2021 4:28 PM CDT [facility] HDL Cholesterol 90 >=40 mg/dL 4:28 PM CDT [facility] LDL, Calculated 85 <130 mg/dL 4:28 PM CDT [facility] Non HDL Chol, Calculated 104 <=159 mg/dL 01/31/2021 4:28 PM CDT [facility] Cholesterol/HDL Ratio 2.2 01/31/2021 4:28 PM CDT [facility] Hours Fasting 12 01/31/2021 4:28 PM CDT [facility] Blood Venipuncture / Unknown 01/31/2021 2:03 PM CDT 01/31/2021 2:03 PM CDT Jyoti Pan PA-C LAB_1 [facility] [address] [place] [address], [facility] [address] [facility], [facility] [address] [place] [address], [facility] [phone] * HIV 1/2 Ag/Ab 4th Generation (05/17/2018 10:33 AM EDUCATIONAL CONSULTANT) HIV-1 p24 Ag and HIV-1/HIV-2 Ab Nonreactive Nonreactive PN SOFT 05/17/2018 10:3 3 AM EDUCATIONAL CONSULTANT 05/17/2018 12:22 PM EDUCATIONAL CONSULTANT Narrative PN SOFT - 05/17/2018 1:50 PM EDUCATIONAL CONSULTANT Performed at [facility] [place] [place] [address] CLIA number [id number] Jyoti Pan PA-C [facility] [address] [place] [address] from Last 3 Months or Most Recently Relevant to Health Maintenance Care Teams Portrait Photographer Relationship Specialty Start Date End Date Jyoti Pan PA-C [address] [address] PCP - General Physician Pack Worker Supervisor 02/04/17
[2024-02-18] MEDS: SODIUM CHLORIDE 0.9 % (FLUSH) 10 ML SYRINGE IVF (11:00)
[2024-02-18] MEDS: OXYMETAZOLINE 0.05% NASAL SPRAY 2 SPRAY NOSTRIL-B (11:00)
[2024-02-18] MEDS: LACTATED RINGERS 1000 ML 1,000 ML 100 ML IV (11:00)
[2024-02-18] MEDS: LACTATED RINGERS 1000 ML 1,000 ML 35 ML IV (11:15)
[2024-02-18] MEDS: COCAINE HCL 4 % 4 ML SOLUTION NOSTRIL-B (12:05)
[2024-02-18] MEDS: BUPIVACAINE 0.5%/EPINEPHRINE 0.9 MG (30.9 ML) INJECTION (12:10)
[2024-02-18] MEDS: AYR SALINE NASAL GEL 1 APPLIC NOSTRIL-B (12:19)
[2024-02-18] MEDS: MUPIROCIN 1 GM PACKET 1 APPLIC TOPICAL (12:23)
--- NOTE | 2024-02-18 12:42 | W.ANESCHARGE ---
Anesthesia Charges Start Date/Time Anesthesia Start Date: 02/18/24 Anesthesia Start Time: 11:51 Stop Date/Time Anesthesia Stop Date: 02/18/24 Anesthesia Stop Time: 12:40
--- NOTE | 2024-02-18 12:47 | W.ANESCHARGE ---
Anesthesia Charges Start Date/Time Anesthesia Start Date: 02/18/24 Anesthesia Start Time: 11:51 Stop Date/Time Anesthesia Stop Date: 02/18/24 Anesthesia Stop Time: 12:40
--- NOTE | 2024-02-18 13:15 | P.ENTPROC_ITS ---
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 A right hemitransfixion incision was made left anterior posterior tunnels were created a vertical incision was made through the cartilage and a right posterior tunnel created. The posterior deflected portions of septal bone and cartilage were resected a large piece was trimmed and returned to intraseptal space. The anterior septum was moved to midline. The hemitransfixion was closed with 2 4-0 chromic sutures. A stab incision was made in the anterior of the right inferior turbinate a tunnel created with a Manjinder dissector. Conservative anterior submucous resection was performed. The ketty bone was outfractured. The Coblation was used to cauterize intramurally along the inferior 10%. This was repeated on the left side in identical fashion. The left middle turbinate ketty bullosa was incised along its inferior aspect. The a small amount of bone was resected with a Alejandra forceps and then the turbinate was crushed with the [place] forceps. Silastic stents were secured with 3-0 nylon and Merocel packs placed in the middle meatus on each side. McIvor mouth gag was inserted the tongue retracted forward. There is the small papilloma on the tip of the uvula. This was amputated along with about a 5 mm margin. This specimen was sent to pathology. The patient was extubated the operating room taken recovery in satisfactory condition. Blood loss was 15 mL. There were no complications. Surgeon: Mg Carrillo MD
[2024-02-18] MEDS: ONDANSETRON 2 MG/ML inj 4 MG IVP (14:09)
[2024-02-18] MEDS: OXYCODONE 5 MG TABLET PO (14:09)
== END 2024-02-18 14:20 | disposition home or self-care (01) ==
PROVIDERS: PCP Family Medicine; Visit Provider Otolaryngology
PROC: (CPT 31231; principal; 2024-02-18 11:45)
PROC: (CPT 42104; 2024-02-18 11:45)
DX: J34.2 Deviated nasal septum (principal); J34.3 Hypertrophy of nasal turbinates; D10.39 Benign neoplasm of other parts of mouth; R51.9 Headache, unspecified; J34.89 Other specified disorders of nose and nasal sinuses
CPT/HCPCS: 42104; 30520; 30140; 31240; 00160; 88302; 88305; A9270; J0330; J1100; J2250; J2405; J2704; J2710; J3010; J7120